=== PATIENT | male | born 1950 | race Caucasian/White ===

== ENCOUNTER → 2021-12-24 09:21 | Outpatient (CLI) | payer MEDICARE, OTHER, SELFPAY ==
[2021-12-24 11:08] LABS: Hemoglobin A1C% w Est Avg Glu 5.6 % (4.0-6.0)
[2021-12-24 11:10] LABS: Add Manual Diff / Slide Review NO; Basophils Absolute Auto 100 /uL (0-100); Basophils Percent Auto 0.6 % (0-2); Eosinophils Absolute Auto 400 /uL (0-450); Eosinophils Percent Auto 3.8 % (2-4); Hematocrit 41.6 % (41-53); Hemoglobin 14.4 g/dL (13.5-17.5); Lymphocytes Absolute Auto 2500 /uL (1100-4500); Lymphocytes Percent Auto 25.5 % (25-40); Mean Corpuscular HGB Conc 34.6 % (30-36); Mean Corpuscular Hemoglobin 29.3 PG (26-34); Mean Corpuscular Volume 84.5 fL (80-100); Monocytes Absolute Auto 800 /uL (0-900); Monocytes Percent Auto 8.5 % (3-14); Neutrophils Absolute Auto 6000 /uL (1500-7000); Neutrophils Percent Auto 61.6 % (50-75); Platelet Count 238 X10^3/uL (150-400); Red Blood Cell Count 4.93 X10^6/uL (4.5-5.9); Red Cell Distribution Width 13.3 % (11.6-14.8); White Blood Cell Count 9.8 X10^3/uL (4.5-11.0)
[2021-12-24 11:57] LABS: Alanine Aminotransferase 35 IU/L (<50); Albumin 4.3 g/dL (3.5-5.0); Albumin Globulin Ratio 1.5 (1.0-2.8); Alkaline Phosphatase 56 U/L (38-126); Aspartate Aminotransferase 30 IU/L (17-59); BUN Creatinine Ratio 18.8 (6-22); Bilirubin Total 0.6 mg/dL (0.2-1.3); Blood Urea Nitrogen 18 mg/dL (9-20); Calcium 9.3 mg/dL (8.4-10.2); Carbon Dioxide 28 mmol/L (22-32); Chloride 100 mmol/L (98-107); Cholesterol 164 mg/dL (140-199); Estimated Glomerular Filt Rate > 60 mL/min (>60); Globulin 2.8 g/dL (1.7-4.1); Glucose 95 mg/dL (80-110); HDL Cholesterol 55 mg/dL (40-60); HEMOLYSIS < 15 (0-50); LDL Cholesterol Calculated 83 mg/dL (<100); Potassium 4.1 mmol/L (3.4-5.1); Sodium 137 mmol/L (137-145); Total Protein 7.1 g/dL (6.3-8.2); Triglycerides 128 mg/dL (35-150)
== END ==
PROVIDERS: PCP Family Medicine; Referring Provider Family Medicine; Visit Provider Family Medicine
DX: E78.5 Hyperlipidemia, unspecified (principal); I10 Essential (primary) hypertension; I48.19 Other persistent atrial fibrillation
CPT/HCPCS: 36415; 80053; 80061; 83036; 85025

== ENCOUNTER 2022-12-21 03:24 | Emergency (ER) | payer MEDICARE, SELFPAY ==
[2022-12-21] VITALS (10 sets, daily range): BP systolic 111–127; BP diastolic 59–71; PULSE 78–122; RESP 10–30; TEMP 36.6; O2SAT 97–100; BMI 29.8
--- NOTE | 2022-12-21 03:41 | ED.GENADULT ---
HPI - General Adult General Chief complaint: Syncope Stated complaint: syncope- hit head on wall- eliquis Time Seen by Provider: 12/21/22 03:41 History of Present Illness HPI narrative: 72-year-old male nonsmoker with history of AFib on Eliquis presents by EMS for evaluation of a syncopal episode this morning. He states that he had a busy day yesterday but had a relatively normal amount of food and drink. He got new exercise equipment in chose to use at all. He took his medications as directed and went to bed in his normal state of health. He woke up this morning to use the bathroom which is about 10 ft away from his bed. By the time he got to the toilet he started feeling a bit lightheaded which he states is not necessarily abnormal for him in the morning. He started to urinate and felt increasingly lightheaded at which point he decided to sit down and then his heard a crash and he had fallen forward off the toilet and struck his head on the wall. He quickly woke up and EMS was activated. He does have a small abrasion on his forehead and is activated as a modified trauma given his fall with head injury on anticoagulants. He is otherwise well and back to his baseline. He is not dizzy, weak or lightheaded. He denies any fever or chills and has no chest pain or shortness of breath. He is not been recently ill and denies nausea, vomiting or diarrhea. Related Data Home Medications Medication Instructions Recorded Confirmed apixaban 5 mg tablet (Eliquis) 5 mg PO BID 12/24/21 02/07/22 Previous Rx's Medication Instructions Recorded zolpidem 5 mg tablet (Ambien) 5 mg PO BEDTIME PRN insomnia #30 02/07/22 tabs sildenafil 100 mg tablet (Viagra) 50 - 100 mg (0.5 - 1 x 100 mg) PO 04/12/22 DAILY PRN sexual activity #30 tabs hydrochlorothiazide 25 mg tablet 25 mg PO DAILY for blood pressure 05/02/22 #90 tabs metoprolol succinate 25 mg 25 mg PO DAILY blood pressure #90 05/02/22 tablet,extended release 24 hr tabs atorvastatin 40 mg tablet See Rx Instructions .Route 06/13/22 .COMPLEX #90 tabs fluticasone propionate 100 1 inh inhalation BID #60 ea 09/06/22 mcg/actuation blister powder for inhalation Allergies Allergy/AdvReac Type Severity Reaction Status Date / Time cat celia AdvReac Intermediate Verified 02/07/22 10:09 Review of Systems Review of Systems Narrative: GENERAL: Denies chills, fatigue, malaise, fever, sweats. HEENT: Denies sinus pain, ear pain, sore throat, difficulty swallowing, dizziness. RESPIRATORY: Denies dyspnea, cough, wheezing, hemoptysis, sputum. CARDIOVASCULAR: See HPI GASTROINTESTINAL: Denies nausea, vomiting, abdominal pain, diarrhea, constipation, melena. : Denies dysuria, frequency, incontinence, hematuria, urinary retention. MUSCULOSKELETAL: denies weakness, joint pain, or bony pain SKIN: Denies rash, skin lesions, or other NEUROLOGIC: Denies weakness, headache, numbness, change in speech, confusion, seizures, incoordination. PSYCHIATRIC: No concerning psychosocial issues. 12 point review of systems is negative except for those stated above Patient History Medical History Erectile dysfunction Insomnia Encounter for annual wellness visit (AWV) in Medicare patient Plantar warts Asthma (~2019) Allergies Mumps Measles Chicken pox Hyperlipidemia Persistent atrial fibrillation (~2001) Benign essential HTN Surgical History Anesthesia History of nasal surgery Family History Father Congestive heart failure Mother Cancer Congestive heart failure Social History Smoking Status: Never smoker Smoking Status: Never smoker Exam Narrative Exam Narrative: GENERAL: [72] year old patient appears stated age. Well-developed patient, in mild distress. HEAD: Minor superficial abrasion to left side of forehead, no large hematoma or evidence of depressed skull fracture EYES: Pupils equal round and reactive. Extraocular motions intact. No scleral icterus. No injection or drainage. ENT: Nose without bleeding, purulent drainage. Throat without erythema, tonsillar hypertrophy or exudate. Airway patent. NECK: Trachea midline. Non tender CARDIOVASCULAR: Regular rate and rhythm without murmurs, gallops, or rubs. RESPIRATORY: Clear to auscultation. Breath sounds equal bilaterally. No wheezes, rales, or rhonchi. GASTROINTESTINAL: Abdomen soft, non-tender, nondistended. EXTREMITIES: No edema or joint tenderness. BACK: Nontender without deformity or crepitance. No flank tenderness. NEURO: AOx3. SKIN: No rash or erythema of visible areas Initial Vital Signs Initial Vital Signs: Vital Signs Temperature 97.8 F 12/21/22 03:36 Pulse Rate 78 12/21/22 03:36 Respiratory Rate 16 12/21/22 03:36 Blood Pressure 127/71 12/21/22 03:36 Pulse Oximetry 97 12/21/22 03:36 Oxygen Delivery Method Room Air 12/21/22 03:36 Course Orders Ordered: ED Orders 12/21/22 03:29 Complete Blood Count AUTO DIFF Stat Comprehensive Metabolic Panel Stat Magnesium Stat Troponin & CK Cardiac Panel Stat 12/21/22 03:43 CT head/brain wo con Stat 12/21/22 03:44 CT cervical spine wo con Stat 12/21/22 03:47 EKG-12 Lead Stat Discontinued Medications Sodium Chloride (Normal Saline 0.9%) 500 mls @ 1,000 mls/hr IV BOLUS ONE Stop: 12/21/22 04:58 Last Admin: 12/21/22 04:38 Dose: 1,000 mls/hr Documented By: CAROLYN Vital Signs Vital signs: Vital Signs - 8 hr 12/21/22 03:36 12/21/22 05:17 Temperature 97.8 F Pulse Rate 78 Pulse Rate [Orthostatic Lying] 79 Pulse Rate [Orthostatic Sitting] 97 H Pulse Rate [Orthostatic Standing] 122 H Respiratory Rate 16 Blood Pressure 127/71 Blood Pressure [Orthostatic Lying] 127/71 Blood Pressure [Orthostatic Sitting] 118/59 L Blood Pressure [Orthostatic Standing] 122/68 Pulse Oximetry 97 Oxygen Delivery Method Room Air Medical Decision Making Lab Data 12/21/22 03:29 12/21/22 03:29 Labs: Lab Results 12/21/22 Range/Units 03:29 WBC 12.6 H (4.5-11.0) X10^3/uL RBC 5.17 (4.5-5.9) X10^6/uL Hgb 14.8 (13.5-17.5) g/dL Hct 43.5 (41-53) % MCV 84.2 (80-100) fL MCH 28.6 (26-34) PG MCHC 33.9 (30-36) % RDW 13.3 (11.6-14.8) % Plt Count 238 (150-400) X10^3/uL Neut % (Auto) 45.0 L (50-75) % Lymph % (Auto) 39.9 (25-40) % Kimble % (Auto) 10.3 (3-14) % Eos % (Auto) 4.2 H (2-4) % Baso % (Auto) 0.6 (0-2) % Neut # (Auto) 5700 (7189-6804) /uL Lymph # (Auto) 5000 H (2489-5537) /uL Kimble # (Auto) 1300 H (0-900) /uL Eos # (Auto) 500 H (0-450) /uL Baso # (Auto) 100 (0-100) /uL Sodium 138 (137-145) mmol/L Potassium 3.6 (3.4-5.1) mmol/L Chloride 103 (98-107) mmol/L Carbon Dioxide 26 (22-32) mmol/L BUN 22 H (9-20) mg/dL Creatinine 1.05 (0.66-1.25) mg/dL Estimated GFR > 60 (>60) mL/min BUN/Creatinine Ratio 21.0 (6-22) Glucose 113 H (80-110) mg/dL Calcium 9.1 (8.4-10.2) mg/dL Magnesium 2.0 (1.6-2.3) mg/dL Total Bilirubin 0.8 (0.2-1.3) mg/dL AST 35 (17-59) IU/L ALT 37 (<50) IU/L Alkaline Phosphatase 43 (38-126) U/L Total Creatine Kinase 171 H (55-170) U/L Troponin I < 0.012 (0.01-0.034) ng/mL Total Protein 7.3 (6.3-8.2) g/dL Albumin 4.1 (3.5-5.0) g/dL Globulin 3.2 (1.7-4.1) g/dL Albumin/Globulin Ratio 1.3 (1.0-2.8) MDM Narrative Medical decision making narrative: [72] year old patient presents with syncope and head injury on Eliquis Multiple etiologies for patient's symptoms considered including, but not limited to: [Positional versus vasovagal versus cardiogenic versus arrhythmia versus intracranial hemorrhage versus other] Prior Charts reviewed in our EMR Primary Historian: patient Labs reviewed and interpreted by myself: Slight leukocytosis of unclear etiology, no signs of anemia, primary electrolytes and renal function within normal, glucose 113 Imaging reviewed: CT of the head demonstrates no acute intracranial findings, CT of C-spine without acute findings Patient's history and physical exam are reassuring. Multiple diagnoses considered as noted above. It seems most likely a relative perfect storm, combining a busier than normal day yesterday with change in position after a night's rest and even an element of micturition syncope. Patient awake and alert for duration of visit without complaint, labs reassuring, EKG without any noted arrhythmia, CT of head and C-spine without acute findings Patient's symptoms improved over duration of stay with above-stated therapies. Findings and discharge diagnosis discussed with patient/family followed by verbalization of understanding Return precautions discussed with patient/family whom verbalize understanding of diagnosis and plan Discharge Plan Departure Patient Disposition: Home Clinical Impression: Contusion of forehead, Syncope and collapse Instructions: DI for Syncope in Adults (Fainting) Activity Restrictions/Additional Instructions: *You have been diagnosed with [syncope and forehead contusion. As we discussed your history and physical exam are reassuring. Your labs showed no sign of anemia, electrolyte disturbance or kidney problem. The images of your head and neck showed no evidence of bleeding or fracture.] *What to do: *Please continue to take your regular medications as directed. [ ] New medication prescriptions sent to your pharmacy: [ ] [ ] New medication written as a paper prescription [ ] No new medications given *Please follow up with your primary care provider in 2-3 days, call for an appointment. Let them know you were seen in the Emergency Department and that we ask that you be seen in follow up. We will electronically transmit a record of today's note if your PCP is in our system *If you do not have a primary care provider please contact the [facility] Resource line at [phone]. They will ask some questions about your medical history and help get you set up with a doctor in the community. *Return to Emergency Department if you should have any new, worsening or concerning symptoms, such as [fever greater than 101 F, shaking chills, worsening pain, persistent vomiting or other bothersome symptoms] Prescriptions: No Action sildenafil [Viagra] 100 mg tablet 50 - 100 mg PO DAILY PRN (Reason: sexual activity) Qty: 30 11RF Rx Instructions: take 30 minutes to 4 hours before activity hydrochlorothiazide 25 mg tablet 25 mg PO DAILY Qty: 90 3RF metoprolol succinate 25 mg tablet extended release 24 hr 25 mg PO DAILY Qty: 90 3RF atorvastatin 40 mg tablet See Rx Instructions .ROUTE .COMPLEX Qty: 90 3RF Dose Instruction: take 1 tablet by mouth once daily Rx Instructions: take 1 tablet by mouth once daily fluticasone propionate 100 mcg/actuation blister with device 1 inh inhalation BID Qty: 60 11RF Eliquis 5 mg tablet 5 mg PO BID zolpidem [Ambien] 5 mg tablet 5 mg PO BEDTIME PRN (Reason: insomnia) Qty: 30 5RF Referrals: Damian Coello DO [Primary Care Provider] - Stand Alone Forms: Patient Portal/API
--- NOTE | 2022-12-21 03:43 | DI.CT.S_ITS ---
PROCEDURE: CT HEAD/BRAIN WO CON INDICATIONS: head injury on eliquis TECHNIQUE: Noncontrast 4.5 mm thick angled axial sections acquired from the foramen magnum to the vertex, with coronal and sagittal reformats. For radiation dose reduction, the following was used: automated exposure control, adjustment of mA and/or kV according to patient size. COMPARISON: None. FINDINGS: Image quality: Excellent. CSF spaces: Basal cisterns are patent. No extra-axial fluid collections. The ventricles are symmetric in size and shape. Brain: No intracranial bleeds or masses. There is cerebral volume loss for age, with resultant ventricular and sulcal prominence. There are periventricular and deep white matter chronic small vessel ischemic changes. There is intracranial internal carotid artery atherosclerosis. Skull and face: Calvarium and visualized facial bones appear intact, without suspicious lesions. Sinuses: Visualized sinuses and mastoids are clear. IMPRESSION: 1. No acute intracranial abnormalities. 2. Cerebral volume loss and chronic microvascular ischemic changes. No significant discrepancy with the night shift manager radiology preliminary report. Dictated by: Narciso Marrero M.D. on 12/21/2022 at 6:58 Approved by: Narciso Marrero M.D. on 12/21/2022 at 6:59
--- NOTE | 2022-12-21 03:44 | DI.CT.S_ITS ---
PROCEDURE: CT CERVICAL SPINE WO CON INDICATIONS: head injury TECHNIQUE: Noncontrast 3 mm thick sections acquired from the skull base to the T4 level. Sagittal and coronal reformats were then constructed. For radiation dose reduction, the following was used: automated exposure control, adjustment of mA and/or kV according to patient size. COMPARISON: None. FINDINGS: Image quality: Excellent. Bones: No fractures or dislocations. Mild degenerative disc disease and moderate facet arthropathy in cervical spine are noted. Visualized superior ribs are intact. Soft tissues: Prevertebral soft tissues are normal in thickness. No paravertebral hematomas. No apical pneumothoraces. IMPRESSION: No cervical spine fractures. No significant discrepancy with the second shift supervisor radiology preliminary report. Dictated by: Narciso Marrero M.D. on 12/21/2022 at 6:59 Approved by: Narciso Marrero M.D. on 12/21/2022 at 7:00
[2022-12-21 04:05] LABS: Add Manual Diff / Slide Review NO; Basophils Absolute Auto 100 /uL (0-100); Basophils Percent Auto 0.6 % (0-2); Eosinophils Absolute Auto 500 /uL (0-450); Eosinophils Percent Auto 4.2 % (2-4); Hematocrit 43.5 % (41-53); Hemoglobin 14.8 g/dL (13.5-17.5); Lymphocytes Absolute Auto 5000 /uL (1100-4500); Lymphocytes Percent Auto 39.9 % (25-40); Mean Corpuscular HGB Conc 33.9 % (30-36); Mean Corpuscular Hemoglobin 28.6 PG (26-34); Mean Corpuscular Volume 84.2 fL (80-100); Monocytes Absolute Auto 1300 /uL (0-900); Monocytes Percent Auto 10.3 % (3-14); Neutrophils Absolute Auto 5700 /uL (1500-7000); Platelet Count 238 X10^3/uL (150-400); Red Blood Cell Count 5.17 X10^6/uL (4.5-5.9); Red Cell Distribution Width 13.3 % (11.6-14.8); White Blood Cell Count 12.6 X10^3/uL (4.5-11.0)
[2022-12-21 04:13] LABS: Alanine Aminotransferase 37 IU/L (<50); Albumin 4.1 g/dL (3.5-5.0); Albumin Globulin Ratio 1.3 (1.0-2.8); Alkaline Phosphatase 43 U/L (38-126); Aspartate Aminotransferase 35 IU/L (17-59); Bilirubin Total 0.8 mg/dL (0.2-1.3); Blood Urea Nitrogen 22 mg/dL (9-20); Calcium 9.1 mg/dL (8.4-10.2); Carbon Dioxide 26 mmol/L (22-32); Chloride 103 mmol/L (98-107); Creatine Kinase 171 U/L (55-170); Estimated Glomerular Filt Rate > 60 mL/min (>60); Globulin 3.2 g/dL (1.7-4.1); Glucose 113 mg/dL (80-110); HEMOLYSIS 20 (0-50); Potassium 3.6 mmol/L (3.4-5.1); Sodium 138 mmol/L (137-145); Total Protein 7.3 g/dL (6.3-8.2)
[2022-12-21 04:24] LABS: Troponin I < 0.012 ng/mL (0.01-0.034)
[2022-12-21] MEDS: SODIUM CHLORIDE 0.9% 500 ML 1000 ML IV (04:38)
== END 2022-12-21 05:36 | disposition home or self-care (01) ==
PROVIDERS: Emergency Provider Emergency Medicine; PCP Family Medicine
DX: S00.83XA Contusion of other part of head, initial encounter (principal); R55 Syncope and collapse; R07.9 Chest pain, unspecified; S09.90XA Unspecified injury of head, initial encounter; Z79.01 Long term (current) use of anticoagulants; Z79.899 Other long term (current) drug therapy
CPT/HCPCS: 70450; 72125; 80053; 82550; 83735; 84484; 85025; 93005; 93010; 96360; 99283; 99284

== ENCOUNTER → 2023-02-13 13:31 | Outpatient (CLI) | payer MEDICARE, SELFPAY ==
[2023-02-13 15:02] LABS: Cholesterol 136 mg/dL (140-199); HDL Cholesterol 53 mg/dL (40-60); LDL Cholesterol Calculated 50 mg/dL (<100); Triglycerides 163 mg/dL (35-150)
[2023-02-13 15:05] LABS: Hemoglobin A1C% w Est Avg Glu 5.7 % (4.0-6.0)
[2023-02-16 04:08] LABS: Lipoprotein (a) <8.4 nmol/L (<75.0)
== END ==
PROVIDERS: PCP Family Medicine; Referring Provider Family Medicine; Visit Provider Family Medicine
DX: Z00.00 Encounter for general adult medical examination without abnormal findings (principal); R73.01 Impaired fasting glucose; E78.49 Other hyperlipidemia; I10 Essential (primary) hypertension; I48.19 Other persistent atrial fibrillation; E78.5 Hyperlipidemia, unspecified; M25.511 Pain in right shoulder
CPT/HCPCS: 36415; 80061; 83036; 83695

== ENCOUNTER 2023-05-09 09:00 | Outpatient (RCR) | payer MEDICARE, SELFPAY ==
--- NOTE | 2023-03-14 14:00 | PT.OIE ---
Current Diagnoses Other chronic pain (03/14/23) Pain in right shoulder (03/14/23) Past Medical History (Last Reviewed 12/21/22 @ 04:38 by Ajit Zimmerman DO) Allergies Asthma (~2019) Benign essential HTN Chicken pox Encounter for annual wellness visit (AWV) in Medicare patient Erectile dysfunction Hyperlipidemia Insomnia Measles Mumps Persistent atrial fibrillation (~2001) Plantar warts Past Surgical History (Last Reviewed 12/21/22 @ 04:38 by Ajit Zimmerman DO) Anesthesia History of nasal surgery Visit Care Team Role Provider Type Damian Coello DO Attending Provider Physician Family Provider Primary Care Provider Referring Provider Specialty: [facility] Practice Address: [address] [place] [address], [address], [facility] Email: [email or web address] Physical Therapy Initial Evaluation PT-OP-A Visit Information Start: 03/13/23 13:19 Freq: Status: Active Protocol: Document 03/14/23 11:15 MB (Rec: 03/14/23 11:30 MB [id number]) Out-Patient Physical Therapy Visit Information Visit Information Visit Type Initial Evaluation Visit Note Managed Medicare Visit Start Time 11:15 Visit Stop Time 12:00 Total Visit Minutes 45 Visit Number 1 Number of 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 Pt states that every other day, he does a modified push- ups on his knees and he demonstrates on his forearms and lifting pelvis. He does recumbent bike, elliptical and pre-core weight machine with leg exercises, pull down, fly and shoulder extension. The shoulder is hurting with all of his lifting exercises. Pt states that Dr. Coello states he might have had a mild rotator cuff tear. Pt is retired. He does not have any other trouble with ADLs. He reports ongoing proximal arm discomfort with shoulder raising. Pt was previously having some paresthesias in right hand and that has resolved. He is sleeping better and is getting a CPAP. Treatment Goals Patient/Caregiver Goals To decrease pain and improve last 5% of mobility PT-OP-C Subjective Start: 03/13/23 13:19 Freq: Status: Active Protocol: Document 03/14/23 11:15 MB (Rec: 03/14/23 11:30 MB [id number]) OP-PT Subjective Patient Comments Patient Comments See comments above Patient Questionnaires Quick Dash- Upper Extremity Quick Dash UE Score 16 Quick Dash UE Impairment 1 to 19% Impaired (Score 1-19) PT-OP-J Posture/Palpation/Skin Start: 03/13/23 13:19 Freq: Status: Active Protocol: Document 03/14/23 11:15 MB (Rec: 03/14/23 11:30 MB [id number]) Posture Evaluation Comments Posture Comments Standing posture: left shoulder is mildly higher than the right; left shoulder is more forward than the right and he has SC and AC changes and stiffness and reports old collar bone injury; forward head, right tragus is 1/2 forward of AC joint; pt with cupping harman on his back; increased convexity lower cervical spine and upp thoracic spine, flat thoracic spine, right scapula is higher than the left, right iliac crest is higher than the left. PT-OP-K Range of Motion Start: 03/13/23 13:19 Freq: Status: Active Protocol: Document 03/14/23 11:15 MB (Rec: 03/14/23 11:43 MB [id number]) Cervical Spine Range of Motion Cervical Spine Active Testing Position Standing Flexion 40 Extension 20 Rotation Left 40 Rotation Right 25 Lateral Flexion Left 10 Lateral Flexion Right 5 Comments Cervical tightness and rotatory component to SB Shoulder Goniometric Range of Motion Shoulder Left Shoulder ROM WFL Yes Testing Position Standing Flexion 150 Abduction 160 Internal Rotation Behind Back (text) To L1 Comments In supine, increased muscle tightness end-range for passive ER in 90/90 and IR is normal Right Shoulder ROM WFL No Testing Position Standing Flexion 135 Abduction 130 Internal Rotation Behind Back (text) To T10 Comments In supine, passive ER 5 deg and IR 5 deg with tension end- feel in 90/90 PT-OP-M Strength Start: 03/13/23 13:19 Freq: Status: Active Protocol: Document 03/14/23 11:15 MB (Rec: 03/14/23 11:43 MB [id number]) Shoulder Strength Shoulder Manual Muscle Testing Left Flexion 5 Normal Abduction (C5) 5 Normal External Rotation 4 Good Right External Rotation 4 Good Comments Deferred flexion and abduction testing Elbow/Forearm Strength Elbow and Forearm Manual Muscle Testing Left Flexion (C6) 5 Normal Extension (C7) 5 Normal Right Flexion (C6) 5 Normal Extension (C7) 5 Normal PT-OP-Q Treatments Start: 03/13/23 13:19 Freq: Status: Active Protocol: Document 03/14/23 11:15 MB (Rec: 03/14/23 11:54 MB [id number]) Therapeutic Exercises Supine Exercises Cane/golf club range Comments Left hand helping right, flexion and abduction, 10 reps and thumb up Self-Care/Home Management Treatment Education Patient Education Body Mechanics,Home Exercise Program,Pain Management, Posture Other Education PT ed pt on benefits of OPPT to improve his body mechanics, posture and shoulder exercise program, benefits of using ice, benefits of proper head and cervical support for sleeping PT-OP-T Assessment and Plan Start: 03/13/23 13:19 Freq: Status: Active Protocol: Document 03/14/23 11:15 MB (Rec: 03/14/23 14:00 MB [id number]) Physical Therapy Assessment Rehab Potential Rehabilitation Potential Good Evaluation Complexity Number of Personal Factors/Comorbidities 1-2 Number of Body Systems Impaired 1-2 Clinical Presentation at Evaluation Evolving Impairments Impairments Activity Tolerance,Functional Activities,Functional Mobility ,Pain,Posture,ROM,Soft Tissue Mobility,Strength Goals 3 Basket Operator Goal (LTG) Pt will perform progressive HEP including postural, range, strengthening, and self- myofascial exercises to improve range, function, pain and strength. LTG Duration 10 weeks 2 Impairment Decreased right shoulder ROM and painful range Care Home Goal (LTG) Pt will present with improved right shoulder flexion and abduction ROM equal to the left in pain-free range to improve functional use of arm and quality of life. LTG Duration 10 weeks 1 Impairment QuickDASH score reflects a little less than 12% impairment Care Home Goal (LTG) Pt will present with QuickDASH score to reflect no more thn 5% impairment to improve function and pain. LTG Duration 10 weeks Assessment Summary Assessment Pt is a 72 y/o male presenting with right shoulder pain with AROM that started in December of 2022. He denies any event causing injury that he can think of. Pt does do an exercise program including push-ups and UE exercises on a machine. Pt presents with limited active right shoulder flexion and abduction in standing and reports pain, especially when lowering arm and pain is in the deltoid/ biceps referral area of the arm. Active IR is also reduced and painful and passive ER and IR in supine with shoulder in 90/90 is tight and painful . Pt reports previous paresthesias in right hand have resolved and he does report an improvement over the past two months with exercises including supine ER with hands behind his head. He and doctor are concerned about possible rotator cuff injury or mild tear and that does seem to be the presentation per PT's functional assessment today. He will benefit from PT to improve posture (pt has many postural changes and cervical limitations as well), range, and strength. Can recommend further diagnostics or work-up if PT is not successful. PT functional prognosis with PT is good. Physical Therapy Plan Frequency and Duration Frequency of Treatment 1-2x/wk Duration of treatment (weeks) 10 Plan of Care Start Date 03/14/23 Plan of Care End Date 04/27/23 Therapeutic Interventions Therapeutic Interventions Balance Training,Canalithic Repositioning,Home Exercise Program,Joint Mobilizations, Manual Therapy,Neuromuscular Re-education,Patient/Caregiver Education,Self-Care/Home Management,Soft Tissue Mobilization,Taping, Therapeutic Activities, Therapeutic Exercises Modalities Cold Pack/Ice Massage,Electric Stimulation,Hot Packs, Ultrasound Other Therapeutic Interventions Cold laser If pt is still in therapy when PT intramuscular needling starts in 2023, intramuscular needling Next Visit Focus/Plan Next Note Type Treatment Note Next Visit Plan Racquet ball massage, pect stretch and supine ER stretch
--- NOTE | 2023-03-21 11:17 | PT.OTN ---
Current Diagnoses Other chronic pain (03/21/23) Pain in right shoulder (03/21/23) Physical Therapy Treatment Note PT-OP-A Visit Information Start: 03/13/23 13:19 Freq: Status: Active Protocol: Document 03/21/23 10:32 MB (Rec: 03/21/23 11:00 MB [id number]) Out-Patient Physical Therapy Visit Information Visit Information Visit Type Treatment Note Visit Note Medicare 04/08 Visit Start Time 10:32 Visit Stop Time 11:15 Total Visit Minutes 43 Visit Number 2 Number of EDUCATION MANAGER Visits 0 PT-OP-B Current Condition Start: 03/13/23 13:19 Freq: Status: Active Protocol: Document 03/21/23 10:32 MB (Rec: 03/21/23 11:00 MB [id number]) Current Condition Treatment Goals Patient/Caregiver Goals Pt wonders when PT would get to the point that there would be a diagnostic asked. PT-OP-C Subjective Start: 03/13/23 13:19 Freq: Status: Active Protocol: Document 03/14/23 11:15 MB (Rec: 03/14/23 11:30 MB [id number]) OP-PT Subjective Patient Comments Patient Comments See comments above Patient Questionnaires Quick Dash- Upper Extremity Quick Dash UE Score 16 Quick Dash UE Impairment 1 to 19% Impaired (Score 1-19) PT-OP-J Posture/Palpation/Skin Start: 03/13/23 13:19 Freq: Status: Active Protocol: Document 03/14/23 11:15 MB (Rec: 03/14/23 11:30 MB [id number]) Posture Evaluation Comments Posture Comments Standing posture: left shoulder is mildly higher than the right; left shoulder is more forward than the right and he has SC and AC changes and stiffness and reports old collar bone injury; forward head, right tragus is 1/2 forward of AC joint; pt with cupping harman on his back; increased convexity lower cervical spine and upp thoracic spine, flat thoracic spine, right scapula is higher than the left, right iliac crest is higher than the left. PT-OP-K Range of Motion Start: 03/13/23 13:19 Freq: Status: Active Protocol: Document 03/14/23 11:15 MB (Rec: 03/14/23 11:43 MB [id number]) Cervical Spine Range of Motion Cervical Spine Active Testing Position Standing Flexion 40 Extension 20 Rotation Left 40 Rotation Right 25 Lateral Flexion Left 10 Lateral Flexion Right 5 Comments Cervical tightness and rotatory component to SB Shoulder Goniometric Range of Motion Shoulder Left Shoulder ROM WFL Yes Testing Position Standing Flexion 150 Abduction 160 Internal Rotation Behind Back (text) To L1 Comments In supine, increased muscle tightness end-range for passive ER in 90/90 and IR is normal Right Shoulder ROM WFL No Testing Position Standing Flexion 135 Abduction 130 Internal Rotation Behind Back (text) To T10 Comments In supine, passive ER 5 deg and IR 5 deg with tension end- feel in 90/90 PT-OP-M Strength Start: 03/13/23 13:19 Freq: Status: Active Protocol: Document 03/14/23 11:15 MB (Rec: 03/14/23 11:43 MB [id number]) Shoulder Strength Shoulder Manual Muscle Testing Left Flexion 5 Normal Abduction (C5) 5 Normal External Rotation 4 Good Right External Rotation 4 Good Comments Deferred flexion and abduction testing Elbow/Forearm Strength Elbow and Forearm Manual Muscle Testing Left Flexion (C6) 5 Normal Extension (C7) 5 Normal Right Flexion (C6) 5 Normal Extension (C7) 5 Normal PT-OP-Q Treatments Start: 03/13/23 13:19 Freq: Status: Active Protocol: Document 03/21/23 10:32 MB (Rec: 03/21/23 11:00 MB [id number]) Therapeutic Exercises Standing Exercises Review HEP and arm swing Standing Exercise Name Scapular movement and arm swing with gait, review cane ex Comments Ed in benefits in pool noodle Manual Therapy Treatment Other Other Manual Treatments AROM in standing before [place] Protocol: right shoulder abduction: 125 deg, flexion 140 and twinge with lower arm. [place] Protocol mobs right shoulder including scapular mobs all directions, passive range rotation, SC and AC mobs . Increased tension with PA mobs with arm in IR and in ratchet position. Increased tension with passive right abduction in side lying, PA mobs in side lying also tight. After treatment, abduction to 158 deg and flexion to 150 deg. PT-OP-T Assessment and Plan Start: 03/13/23 13:19 Freq: Status: Active Protocol: Document 03/21/23 10:32 MB (Rec: 03/21/23 11:07 MB [id number]) Physical Therapy Assessment Rehab Potential Rehabilitation Potential Good Evaluation Complexity Number of Personal Factors/Comorbidities 1-2 Number of Body Systems Impaired 1-2 Clinical Presentation at Evaluation Evolving Impairments Impairments Activity Tolerance,Functional Activities,Functional Mobility ,Pain,Posture,ROM,Soft Tissue Mobility,Strength Goals 3 Treatment Supervisor Goal (LTG) Pt will perform progressive HEP including postural, range, strengthening, and self- myofascial exercises to improve range, function, pain and strength. LTG Duration 10 weeks 2 Impairment Decreased right shoulder ROM and painful range Treatment Supervisor Goal (LTG) Pt will present with improved right shoulder flexion and abduction ROM equal to the left in pain-free range to improve functional use of arm and quality of life. LTG Duration 10 weeks 1 Impairment QuickDASH score reflects a little less than 12% impairment Prison Goal (LTG) Pt will present with QuickDASH score to reflect no more thn 5% impairment to improve function and pain. LTG Duration 10 weeks Assessment Summary Assessment Pt with most tension passively with PA mobs in IR position and ratchet position, tension with passive abduction and windwill with [place] protocol today. AROM right shoulder abduction and flexion are both better after [place] protocol today with most improvement in abduction. Physical Therapy Plan Frequency and Duration Frequency of Treatment 1-2x/wk Duration of treatment (weeks) 10 Plan of Care Start Date 03/14/23 Plan of Care End Date 04/27/23 Therapeutic Interventions Therapeutic Interventions Balance Training,Canalithic Repositioning,Home Exercise Program,Joint Mobilizations, Manual Therapy,Neuromuscular Re-education,Patient/Caregiver Education,Self-Care/Home Management,Soft Tissue Mobilization,Taping, Therapeutic Activities, Therapeutic Exercises Modalities Cold Pack/Ice Massage,Electric Stimulation,Hot Packs, Ultrasound Other Therapeutic Interventions Cold laser If pt is still in therapy when PT intramuscular needling starts in 2023, intramuscular needling Next Visit Focus/Plan Next Note Type Treatment Note Next Visit Plan Racquet ball massage, pect stretch and supine ER stretch, con't manual work, [place] Protocol
--- NOTE | 2023-03-24 16:40 | PT.OTN ---
Current Diagnoses Other chronic pain (03/24/23) Pain in right shoulder (03/24/23) Physical Therapy Treatment Note PT-OP-A Visit Information Start: 03/13/23 13:19 Freq: Status: Active Protocol: Document 03/24/23 08:36 AB (Rec: 03/24/23 16:40 AB [id number]) Out-Patient Physical Therapy Visit Information Visit Information Visit Note Managed Medicare 05/06 Visit Start Time 14:27 Visit Stop Time 15:13 Visit Number 3 Number of MOTEL FRONT DESK CLERK Visits 1 PT-OP-B Current Condition Start: 03/13/23 13:19 Freq: Status: Active Protocol: Document 03/21/23 10:32 MB (Rec: 03/21/23 11:00 MB [id number]) Current Condition Treatment Goals Patient/Caregiver Goals Pt wonders when PT would get to the point that there would be a diagnostic asked. PT-OP-C Subjective Start: 03/13/23 13:19 Freq: Status: Active Protocol: Document 03/24/23 08:36 AB (Rec: 03/24/23 16:40 AB [id number]) OP-PT Subjective Patient Comments Patient Comments Patient reports he has been doing his stretches he did previous to therapy. Patient reports unable to sleep on side. Patient reports he started Pilates with a maintenance trainer who is aware of the shoulder injury and has had no increase in shoulder pain. PT-OP-J Posture/Palpation/Skin Start: 03/13/23 13:19 Freq: Status: Active Protocol: Document 03/14/23 11:15 MB (Rec: 03/14/23 11:30 MB [id number]) Posture Evaluation Comments Posture Comments Standing posture: left shoulder is mildly higher than the right; left shoulder is more forward than the right and he has SC and AC changes and stiffness and reports old collar bone injury; forward head, right tragus is 1/2 forward of AC joint; pt with cupping harman on his back; increased convexity lower cervical spine and upp thoracic spine, flat thoracic spine, right scapula is higher than the left, right iliac crest is higher than the left. PT-OP-K Range of Motion Start: 03/13/23 13:19 Freq: Status: Active Protocol: Document 03/14/23 11:15 MB (Rec: 03/14/23 11:43 MB [id number]) Cervical Spine Range of Motion Cervical Spine Active Testing Position Standing Flexion 40 Extension 20 Rotation Left 40 Rotation Right 25 Lateral Flexion Left 10 Lateral Flexion Right 5 Comments Cervical tightness and rotatory component to SB Shoulder Goniometric Range of Motion Shoulder Left Shoulder ROM WFL Yes Testing Position Standing Flexion 150 Abduction 160 Internal Rotation Behind Back (text) To L1 Comments In supine, increased muscle tightness end-range for passive ER in 90/90 and IR is normal Right Shoulder ROM WFL No Testing Position Standing Flexion 135 Abduction 130 Internal Rotation Behind Back (text) To T10 Comments In supine, passive ER 5 deg and IR 5 deg with tension end- feel in 90/90 PT-OP-M Strength Start: 03/13/23 13:19 Freq: Status: Active Protocol: Document 03/14/23 11:15 MB (Rec: 03/14/23 11:43 MB [id number]) Shoulder Strength Shoulder Manual Muscle Testing Left Flexion 5 Normal Abduction (C5) 5 Normal External Rotation 4 Good Right External Rotation 4 Good Comments Deferred flexion and abduction testing Elbow/Forearm Strength Elbow and Forearm Manual Muscle Testing Left Flexion (C6) 5 Normal Extension (C7) 5 Normal Right Flexion (C6) 5 Normal Extension (C7) 5 Normal PT-OP-Q Treatments Start: 03/13/23 13:19 Freq: Status: Active Protocol: Document 03/24/23 08:36 AB (Rec: 03/24/23 16:40 AB [id number]) Therapeutic Exercises Supine Exercises chest repairer maintenance building Supine Exercise Name chest repairer maintenance building/pec stretch Side bilateral Equipment Used foam roller Reps/Minutes 3 min Comments VC supine shoulder flexion Supine Exercise Name AROM with dowel Side bilateral Reps/Minutes 10 Comments VC for 10 sec hold Sidelying Exercises shoulder abduction Sidelying Exercise Name AROM Side right Reps/Minutes 10 PROM ER with dowel shoulder Sidelying Exercise Name right shoulder ER Side right Reps/Minutes 10 Comments Verbal and tactile cues sidelying ER AROM Side right Reps/Minutes 10 Comments VC and tactile cues Standing Exercises bent row Standing Exercise Name bent row Side right Resistance 0 Reps/Minutes 10 Comments VC and visual cues pec stretch Standing Exercise Name standing at door single arm Side bilateral Reps/Minutes one minute X 2 Manual Therapy Treatment Joint Mobilizations Gh mobilization Joint GH Direction AP, PA and INF Grade II Body Position Hooklying Reps/Duration 12 each Comments Monitored for pain scapular mobilization Joint right scapual Direction into adduction and depression Grade III Body Position Sidelying Comments Monitored for pain Manual Techniques PROM shoulder Type PROM shoulder ER Body Location shoulder Body Position Hooklying Reps/Duration 16 Comments Monitored for pain Self-Care/Home Management Treatment Education Other Education Self STM to right scapular muscles with racquet ball, and manually using left UE to pec PT-OP-T Assessment and Plan Start: 03/13/23 13:19 Freq: Status: Active Protocol: Document 03/24/23 08:36 AB (Rec: 03/24/23 16:40 AB [id number]) Physical Therapy Assessment Goals 3 Copper Plate Lithographer Goal (LTG) Pt will perform progressive HEP including postural, range, strengthening, and self- myofascial exercises to improve range, function, pain and strength. LTG Duration 10 weeks 2 Impairment Decreased right shoulder ROM and painful range Alf Goal (LTG) Pt will present with improved right shoulder flexion and abduction ROM equal to the left in pain-free range to improve functional use of arm and quality of life. 1 Impairment QuickDASH score reflects a little less than 12% impairment Alf Goal (LTG) Pt will present with QuickDASH score to reflect no more thn 5% impairment to improve function and pain. LTG Duration 10 weeks Assessment Summary Assessment AROM right shoulder flexion 133 deg start of session with reports of discomfort lowering the UE increased to 139 deg end of session. Physical Therapy Plan Frequency and Duration Frequency of Treatment 1-2x/wk Duration of treatment (weeks) 10 Plan of Care Start Date 03/14/23 Plan of Care End Date 04/27/23 Next Visit Focus/Plan Next Note Type Treatment Note Next Visit Plan Racquet ball massage, pect stretch and supine ER stretch, con't manual work, [place] Protocol
--- NOTE | 2023-03-28 09:34 | PT.OPPOC ---
Physical, Occupational & Speech Therapy At [facility] Current Diagnoses Other chronic pain (03/24/23) Pain in right shoulder (03/24/23) Visit Care Team Role Provider Type Damian Coello DO Attending Provider Physician Family Provider Primary Care Provider Referring Provider Specialty: Family Practice Address: [address] [place] [address], [address], [facility] Email: [email or web address] Plan Of Care PT-OP-T Assessment and Plan Start: 03/13/23 13:19 Freq: Status: Active Protocol: Document 03/28/23 09:30 MB (Rec: 03/28/23 09:34 MB [id number]) Physical Therapy Assessment Rehab Potential Rehabilitation Potential Good Evaluation Complexity Number of Personal Factors/Comorbidities 1-2 Number of Body Systems Impaired 1-2 Clinical Presentation at Evaluation Evolving Impairments Impairments Activity Tolerance,Functional Activities,Functional Mobility ,Pain,Posture,ROM,Soft Tissue Mobility,Strength Goals 3 Longterm Goal (LTG) Pt will perform progressive HEP including postural, range, strengthening, and self- myofascial exercises to improve range, function, pain and strength. LTG Duration 8 weeks 2 Impairment Decreased right shoulder ROM and painful range Etymology Teacher Goal (LTG) Pt will present with improved right shoulder flexion and abduction ROM equal to the left in pain-free range to improve functional use of arm and quality of life. LTG Duration 8 weeks 1 Impairment QuickDASH score reflects a little less than 12% impairment Longterm Goal (LTG) Pt will present with QuickDASH score to reflect no more thn 5% impairment to improve function and pain. LTG Duration 8 weeks Assessment Summary Assessment PT note to send POC to provider. Pt is tolerating PT well including manual work and therapeutic exercise and range improves with manual work. Pt may end up needing further diagnostics to check out rotator cuff and will con' t to monitor progress in pain, range and strength. POC date start below is eval date. Physical Therapy Plan Frequency and Duration Frequency of Treatment 1-2x/wk Duration of treatment (weeks) 10 Plan of Care Start Date 03/14/23 Plan of Care End Date 05/29/23 Therapeutic Interventions Therapeutic Interventions Balance Training,Canalithic Repositioning,Home Exercise Program,Joint Mobilizations, Manual Therapy,Neuromuscular Re-education,Patient/Caregiver Education,Self-Care/Home Management,Soft Tissue Mobilization,Taping, Therapeutic Activities, Therapeutic Exercises Modalities Cold Pack/Ice Massage,Electric Stimulation,Hot Packs, Ultrasound Other Therapeutic Interventions Cold laser Next Visit Focus/Plan Next Note Type Treatment Note Next Visit Plan Con't manual work, [place] Protocol, arm bike, progressive active range and strengthening over pool noodle , consider wall crawls and further thoracic mobility over pool noodle, roller and with activites like Child's pose if pt can tolerate, rib and thoracic mobility Plan of Care Dates Plan of Care Start Date 03/14/23 Plan of Care End Date 05/29/23 Electronically Signed by: Tabatha Taylor PT 03/28/23 0934 If you are in agreement with this Plan of Care, please return a signed and dated copy. I have reviewed this Plan of Care and certify that the skilled therapy services above are required to meet the patient?s needs. Physician Signature Date Printed Name and Credentials Clinical Instructor Signature Printed Name and Credentials
--- NOTE | 2023-03-28 12:03 | PT.OTN ---
Current Diagnoses Other chronic pain (03/28/23) Pain in right shoulder (03/28/23) Physical Therapy Treatment Note PT-OP-A Visit Information Start: 03/13/23 13:19 Freq: Status: Active Protocol: Document 03/28/23 11:15 MB (Rec: 03/28/23 12:02 MB [id number]) Out-Patient Physical Therapy Visit Information Visit Information Visit Note Managed Medicare 06/06 Visit Start Time 11:15 Visit Stop Time 11:55 Visit Number 40 Number of GETTER FILLER Visits 0 PT-OP-B Current Condition Start: 03/13/23 13:19 Freq: Status: Active Protocol: Document 03/21/23 10:32 MB (Rec: 03/21/23 11:00 MB [id number]) Current Condition Treatment Goals Patient/Caregiver Goals Pt wonders when PT would get to the point that there would be a diagnostic asked. PT-OP-C Subjective Start: 03/13/23 13:19 Freq: Status: Active Protocol: Document 03/28/23 11:15 MB (Rec: 03/28/23 12:02 MB [id number]) OP-PT Subjective Patient Comments Patient Comments Pt states that he is going to get his PNA shot at 12:20. Pt does state that he feels better with PT. PT-OP-J Posture/Palpation/Skin Start: 03/13/23 13:19 Freq: Status: Active Protocol: Document 03/14/23 11:15 MB (Rec: 03/14/23 11:30 MB [id number]) Posture Evaluation Comments Posture Comments Standing posture: left shoulder is mildly higher than the right; left shoulder is more forward than the right and he has SC and AC changes and stiffness and reports old collar bone injury; forward head, right tragus is 1/2 forward of AC joint; pt with cupping harman on his back; increased convexity lower cervical spine and upp thoracic spine, flat thoracic spine, right scapula is higher than the left, right iliac crest is higher than the left. PT-OP-K Range of Motion Start: 03/13/23 13:19 Freq: Status: Active Protocol: Document 03/14/23 11:15 MB (Rec: 03/14/23 11:43 MB [id number]) Cervical Spine Range of Motion Cervical Spine Active Testing Position Standing Flexion 40 Extension 20 Rotation Left 40 Rotation Right 25 Lateral Flexion Left 10 Lateral Flexion Right 5 Comments Cervical tightness and rotatory component to SB Shoulder Goniometric Range of Motion Shoulder Left Shoulder ROM WFL Yes Testing Position Standing Flexion 150 Abduction 160 Internal Rotation Behind Back (text) To L1 Comments In supine, increased muscle tightness end-range for passive ER in and IR is normal Right Shoulder ROM WFL No Testing Position Standing Flexion 135 Abduction 130 Internal Rotation Behind Back (text) To T10 Comments In supine, passive ER 5 deg and IR 5 deg with tension end- feel in PT-OP-M Strength Start: 03/13/23 13:19 Freq: Status: Active Protocol: Document 03/14/23 11:15 MB (Rec: 03/14/23 11:43 MB [id number]) Shoulder Strength Shoulder Manual Muscle Testing Left Flexion 5 Normal Abduction (C5) 5 Normal External Rotation 4 Good Right External Rotation 4 Good Comments Deferred flexion and abduction testing Elbow/Forearm Strength Elbow and Forearm Manual Muscle Testing Left Flexion (C6) 5 Normal Extension (C7) 5 Normal Right Flexion (C6) 5 Normal Extension (C7) 5 Normal PT-OP-Q Treatments Start: 03/13/23 13:19 Freq: Status: Active Protocol: Document 03/28/23 11:15 MB (Rec: 03/28/23 12:02 MB [id number]) Cardio Equipment Upper Body Ergometer (UBE) Duration (Minutes) 6 Other 1' forward and 1' backward reps Therapeutic Exercises Standing Exercises Review HEP and arm swing Comments Performed this today as well Therapeutic Activity Therapeutic Activity Postural awareness, scapular and thoracic mobility with gait, standing Comments Hips forward and moving from shoulder and thorax to improve flexibility of upper back and shoulders, cues for staying loose and keeping range once obtained by Pooler protocol Manual Therapy Treatment Other Other Manual Treatments [place] Protocol right shoulder: right scapular and GH mobs in many directions with pt in prone and side lying. Rib recoil and thoracic PA mobs in prone, AP ER mobs and PA ER and IR mobs PT-OP-T Assessment and Plan Start: 03/13/23 13:19 Freq: Status: Active Protocol: Document 03/28/23 11:15 MB (Rec: 03/28/23 12:02 MB [id number]) Physical Therapy Assessment Rehab Potential Rehabilitation Potential Good Evaluation Complexity Number of Personal Factors/Comorbidities 1-2 Number of Body Systems Impaired 1-2 Clinical Presentation at Evaluation Evolving Impairments Impairments Activity Tolerance,Functional Activities,Functional Mobility ,Pain,Posture,ROM,Soft Tissue Mobility,Strength Goals 3 Care Home Goal (LTG) Pt will perform progressive HEP including postural, range, strengthening, and self- myofascial exercises to improve range, function, pain and strength. LTG Duration 8 weeks 2 Impairment Decreased right shoulder ROM and painful range Care Home Goal (LTG) Pt will present with improved right shoulder flexion and abduction ROM equal to the left in pain-free range to improve functional use of arm and quality of life. LTG Duration 8 weeks 1 Impairment QuickDASH score reflects a little less than 12% impairment Care Home Goal (LTG) Pt will present with QuickDASH score to reflect no more thn 5% impairment to improve function and pain. LTG Duration 8 weeks Assessment Summary Assessment Right shoulder AROM in standing before treatment: flexion 138 deg, abduction 138 deg and catch with lowering arm from flexion. Flexion and abduction are both to 160 deg after treatment, which is more range than obtained last Pooler Protocol. Pt has thoracic and scapular tension and these affect his shoulder. Physical Therapy Plan Frequency and Duration Frequency of Treatment 1-2x/wk Duration of treatment (weeks) 10 Plan of Care Start Date 03/14/23 Plan of Care End Date 05/29/23 Therapeutic Interventions Therapeutic Interventions Balance Training,Canalithic Repositioning,Home Exercise Program,Joint Mobilizations, Manual Therapy,Neuromuscular Re-education,Patient/Caregiver Education,Self-Care/Home Management,Soft Tissue Mobilization,Taping, Therapeutic Activities, Therapeutic Exercises Modalities Cold Pack/Ice Massage,Electric Stimulation,Hot Packs, Ultrasound Other Therapeutic Interventions Cold laser Next Visit Focus/Plan Next Note Type Treatment Note Next Visit Plan Handout for posterior capsule stretch. Con't manual work, [place] Protocol, arm bike, progressive active range and strengthening over pool noodle , consider wall crawls and further thoracic mobility over pool noodle/roller and with activites like open book stretching at the wall, rib and thoracic mobility
--- NOTE | 2023-03-31 16:41 | PT.OTN ---
Current Diagnoses Other chronic pain (03/31/23) Pain in right shoulder (03/31/23) Physical Therapy Treatment Note PT-OP-A Visit Information Start: 03/13/23 13:19 Freq: Status: Active Protocol: Document 03/31/23 08:20 AB (Rec: 03/31/23 16:41 AB [id number]) Out-Patient Physical Therapy Visit Information Visit Information Visit Note Managed Medicare 06/06 Visit Start Time 14:27 Visit Stop Time 15:22 Visit Number 5 Number of PHYSICS FACULTY MEMBER Visits 1 Evaluation Information Evaluation Date 03/14/23 PT-OP-B Current Condition Start: 03/13/23 13:19 Freq: Status: Active Protocol: Document 03/21/23 10:32 MB (Rec: 03/21/23 11:00 MB [id number]) Current Condition Treatment Goals Patient/Caregiver Goals Pt wonders when PT would get to the point that there would be a diagnostic asked. PT-OP-C Subjective Start: 03/13/23 13:19 Freq: Status: Active Protocol: Document 03/31/23 08:20 AB (Rec: 03/31/23 16:41 AB [id number]) OP-PT Subjective Patient Comments Patient Comments Armaan reports he is a little sore, did Pilates and his exercises already. Patient reports he felt good post previous session. PT-OP-J Posture/Palpation/Skin Start: 03/13/23 13:19 Freq: Status: Active Protocol: Document 03/14/23 11:15 MB (Rec: 03/14/23 11:30 MB [id number]) Posture Evaluation Comments Posture Comments Standing posture: left shoulder is mildly higher than the right; left shoulder is more forward than the right and he has SC and AC changes and stiffness and reports old collar bone injury; forward head, right tragus is 1/2 forward of AC joint; pt with cupping harman on his back; increased convexity lower cervical spine and upp thoracic spine, flat thoracic spine, right scapula is higher than the left, right iliac crest is higher than the left. PT-OP-K Range of Motion Start: 03/13/23 13:19 Freq: Status: Active Protocol: Document 03/14/23 11:15 MB (Rec: 03/14/23 11:43 MB [id number]) Cervical Spine Range of Motion Cervical Spine Active Testing Position Standing Flexion 40 Extension 20 Rotation Left 40 Rotation Right 25 Lateral Flexion Left 10 Lateral Flexion Right 5 Comments Cervical tightness and rotatory component to SB Shoulder Goniometric Range of Motion Shoulder Left Shoulder ROM WFL Yes Testing Position Standing Flexion 150 Abduction 160 Internal Rotation Behind Back (text) To L1 Comments In supine, increased muscle tightness end-range for passive ER in / and IR is normal Right Shoulder ROM WFL No Testing Position Standing Flexion 135 Abduction 130 Internal Rotation Behind Back (text) To T10 Comments In supine, passive ER 5 deg and IR 5 deg with tension end- feel in PT-OP-M Strength Start: 03/13/23 13:19 Freq: Status: Active Protocol: Document 03/14/23 11:15 MB (Rec: 03/14/23 11:43 MB [id number]) Shoulder Strength Shoulder Manual Muscle Testing Left Flexion 5 Normal Abduction (C5) 5 Normal External Rotation 4 Good Right External Rotation 4 Good Comments Deferred flexion and abduction testing Elbow/Forearm Strength Elbow and Forearm Manual Muscle Testing Left Flexion (C6) 5 Normal Extension (C7) 5 Normal Right Flexion (C6) 5 Normal Extension (C7) 5 Normal PT-OP-Q Treatments Start: 03/13/23 13:19 Freq: Status: Active Protocol: Document 03/31/23 08:20 AB (Rec: 03/31/23 16:41 AB [id number]) Therapeutic Exercises Supine Exercises alternating UE flexion Supine Exercise Name hooklying on foam roller Side bilateral Reps/Minutes 10 Comments Verbal cues cheerleaders Supine Exercise Name on foam roller/hooklying Side bilateral Resistance single thickness level one band Reps/Minutes 10 Comments yes mini band modified Supine Exercise Name ER on hooklying on pool noodle with Sh flexion Side bilateral Resistance single thickness level one band Reps/Minutes X10 Comments Verbal cues post cuff stretch Supine Exercise Name post cuff stretch Side right Reps/Minutes X3 30 sec Comments 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 AP ER mobs and PA ER and IR mobs PT-OP-T Assessment and Plan Start: 03/13/23 13:19 Freq: Status: Active Protocol: Document 03/31/23 08:20 AB (Rec: 03/31/23 16:41 AB [id number]) Physical Therapy Assessment Goals 3 Irrigation Equipment Mechanic Goal (LTG) Pt will perform progressive HEP including postural, range, strengthening, and self- myofascial exercises to improve range, function, pain and strength. LTG Duration 8 weeks 2 Impairment Decreased right shoulder ROM and painful range Irrigation Equipment Mechanic Goal (LTG) Pt will present with improved right shoulder flexion and abduction ROM equal to the left in pain-free range to improve functional use of arm and quality of life. LTG Duration 8 weeks 1 Impairment QuickDASH score reflects a little less than 12% impairment Longterm Goal (LTG) Pt will present with QuickDASH score to reflect no more thn 5% impairment to improve function and pain. LTG Duration 8 weeks Assessment Summary Assessment right shoulder flexion increased to 146 from 142 deg start of session, pain with lowering the UE persists. Physical Therapy Plan Frequency and Duration Frequency of Treatment 1-2x/wk Duration of treatment (weeks) 10 Plan of Care Start Date 03/14/23 Plan of Care End Date 05/29/23 Next Visit Focus/Plan Next Note Type Treatment Note Next Visit Plan Con't manual work, [place] Protocol, arm bike, progressive active range and strengthening over pool noodle , consider wall crawls and further thoracic mobility foam roller vs pool noodle and with activites like open book stretching at the wall, rib and thoracic mobility
--- NOTE | 2023-04-05 14:10 | PT.OTN ---
Current Diagnoses Other chronic pain (04/05/23) Pain in right shoulder (04/05/23) Physical Therapy Treatment Note PT-OP-A Visit Information Start: 03/13/23 13:19 Freq: Status: Active Protocol: Document 04/05/23 10:10 AB (Rec: 04/05/23 14:10 AB [id number]) Out-Patient Physical Therapy Visit Information Visit Information Visit Note Managed Medicare 06/06 Visit Start Time 12:59 Visit Stop Time 13:51 Visit Number 6 Number of FURNITURE ASSOCIATE Visits 2 PT-OP-B Current Condition Start: 03/13/23 13:19 Freq: Status: Active Protocol: Document 03/21/23 10:32 MB (Rec: 03/21/23 11:00 MB [id number]) Current Condition Treatment Goals Patient/Caregiver Goals Pt wonders when PT would get to the point that there would be a diagnostic asked. PT-OP-C Subjective Start: 03/13/23 13:19 Freq: Status: Active Protocol: Document 04/05/23 10:10 AB (Rec: 04/05/23 14:10 AB [id number]) OP-PT Subjective Patient Comments Patient Comments Armaan reports having lower back pain, not sure if it was from Pilates or foam roller. Patient reports this happens 2 -3X a year, reports numbness lateral thighs bilaterally. PT-OP-J Posture/Palpation/Skin Start: 03/13/23 13:19 Freq: Status: Active Protocol: Document 03/14/23 11:15 MB (Rec: 03/14/23 11:30 MB [id number]) Posture Evaluation Comments Posture Comments Standing posture: left shoulder is mildly higher than the right; left shoulder is more forward than the right and he has SC and AC changes and stiffness and reports old collar bone injury; forward head, right tragus is 1/2 forward of AC joint; pt with cupping harman on his back; increased convexity lower cervical spine and upp thoracic spine, flat thoracic spine, right scapula is higher than the left, right iliac crest is higher than the left. PT-OP-K Range of Motion Start: 03/13/23 13:19 Freq: Status: Active Protocol: Document 03/14/23 11:15 MB (Rec: 03/14/23 11:43 MB [id number]) Cervical Spine Range of Motion Cervical Spine Active Testing Position Standing Flexion 40 Extension 20 Rotation Left 40 Rotation Right 25 Lateral Flexion Left 10 Lateral Flexion Right 5 Comments Cervical tightness and rotatory component to SB Shoulder Goniometric Range of Motion Shoulder Left Shoulder ROM WFL Yes Testing Position Standing Flexion 150 Abduction 160 Internal Rotation Behind Back (text) To L1 Comments In supine, increased muscle tightness end-range for passive ER in /90 and IR is normal Right Shoulder ROM WFL No Testing Position Standing Flexion 135 Abduction 130 Internal Rotation Behind Back (text) To T10 Comments In supine, passive ER 5 deg and IR 5 deg with tension end- feel in / PT-OP-M Strength Start: 03/13/23 13:19 Freq: Status: Active Protocol: Document 03/14/23 11:15 MB (Rec: 03/14/23 11:43 MB [id number]) Shoulder Strength Shoulder Manual Muscle Testing Left Flexion 5 Normal Abduction (C5) 5 Normal External Rotation 4 Good Right External Rotation 4 Good Comments Deferred flexion and abduction testing Elbow/Forearm Strength Elbow and Forearm Manual Muscle Testing Left Flexion (C6) 5 Normal Extension (C7) 5 Normal Right Flexion (C6) 5 Normal Extension (C7) 5 Normal PT-OP-Q Treatments Start: 03/13/23 13:19 Freq: Status: Active Protocol: Document 04/05/23 10:10 AB (Rec: 04/05/23 14:10 AB [id number]) Therapeutic Exercises Supine Exercises reclined shoulder flexion Supine Exercise Name reclined on 2 pillows Side right Reps/Minutes X10 Comments Patient ed rationale of reclined (AA level) to increase ROM Standing Exercises push up plus on wall Standing Exercise Name wall push up plus Side bilateral Reps/Minutes 10 Comments Visual cues pec stretch Standing Exercise Name standing at door single arm Side bilateral Reps/Minutes one minute X 2 Manual Therapy Treatment Soft Tissue Mobilization post cuff Body Location right post cuff Mobilization Type Rolling,Strumming Intensity/Depth Moderate Comments monitored for pain bilateral pec Body Location right pec Mobilization Type Rolling,Strumming Intensity/Depth Moderate Body Position Hooklying Comments monitored for pain Other Other Manual Treatments [place] Protocol right shoulder: right scapular and GH mobs in many directions with pt in prone and side lying. AP ER mobs and PA ER and IR mobs Self-Care/Home Management Treatment Education Other Education Pt. ed to make MD aware if low back symptoms persist. Patient reports that he has a hx of this and it has been improving since Monday PT-OP-T Assessment and Plan Start: 03/13/23 13:19 Freq: Status: Active Protocol: Document 04/05/23 10:10 AB (Rec: 04/05/23 14:10 AB [id number]) Physical Therapy Assessment Goals 3 Correction Goal (LTG) Pt will perform progressive HEP including postural, range, strengthening, and self- myofascial exercises to improve range, function, pain and strength. LTG Duration 8 weeks 2 Impairment Decreased right shoulder ROM and painful range Oiling Machine Operator Goal (LTG) Pt will present with improved right shoulder flexion and abduction ROM equal to the left in pain-free range to improve functional use of arm and quality of life. LTG Duration 8 weeks 1 Impairment QuickDASH score reflects a little less than 12% impairment Correction Goal (LTG) Pt will present with QuickDASH score to reflect no more thn 5% impairment to improve function and pain. LTG Duration 8 weeks Assessment Summary Assessment AROM right shoulder flexion increased to 140 deg from 138 deg start of session. Patient into session with reports of increased pain, guarded movement with decreased velocity throughout session, VC for safe tech during transfers throughout session. Physical Therapy Plan Frequency and Duration Frequency of Treatment 1-2x/wk Duration of treatment (weeks) 10 Plan of Care Start Date 03/14/23 Plan of Care End Date 05/29/23 Next Visit Focus/Plan Next Note Type Treatment Note Next Visit Plan Con't manual work, [place] Protocol, arm bike, progressive active range and strengthening over pool noodle , consider wall crawls and further thoracic mobility foam roller vs pool noodle and with activites like open book stretching at the wall, rib and thoracic mobility
--- NOTE | 2023-04-07 16:44 | PT.OTN ---
Current Diagnoses Other chronic pain (04/07/23) Pain in right shoulder (04/07/23) Physical Therapy Treatment Note PT-OP-A Visit Information Start: 03/13/23 13:19 Freq: Status: Active Protocol: Document 04/07/23 14:07 AB (Rec: 04/07/23 16:44 AB [id number]) Out-Patient Physical Therapy Visit Information Visit Information Visit Note Managed Medicare 09/05 [id number] HEP access code Visit Start Time 14:30 Visit Stop Time 15:12 Visit Number 7 Number of ICE RESURFACING MACHINE OPERATORS Visits 3 Evaluation Information Evaluation Date 03/14/23 PT-OP-B Current Condition Start: 03/13/23 13:19 Freq: Status: Active Protocol: Document 03/21/23 10:32 MB (Rec: 03/21/23 11:00 MB [id number]) Current Condition Treatment Goals Patient/Caregiver Goals Pt wonders when PT would get to the point that there would be a diagnostic asked. PT-OP-C Subjective Start: 03/13/23 13:19 Freq: Status: Active Protocol: Document 04/07/23 14:07 AB (Rec: 04/07/23 16:44 AB [id number]) OP-PT Subjective Patient Comments Patient Comments Armaan reports the back pain is much better. Armaan reports shoulder is good, was able to do push ups today without any pain. Patient acknowledges he does not have full range in the right shoullder PT-OP-J Posture/Palpation/Skin Start: 03/13/23 13:19 Freq: Status: Active Protocol: Document 03/14/23 11:15 MB (Rec: 03/14/23 11:30 MB [id number]) Posture Evaluation Comments Posture Comments Standing posture: left shoulder is mildly higher than the right; left shoulder is more forward than the right and he has SC and AC changes and stiffness and reports old collar bone injury; forward head, right tragus is 1/2 forward of AC joint; pt with cupping harman on his back; increased convexity lower cervical spine and upp thoracic spine, flat thoracic spine, right scapula is higher than the left, right iliac crest is higher than the left. PT-OP-K Range of Motion Start: 03/13/23 13:19 Freq: Status: Active Protocol: Document 03/14/23 11:15 MB (Rec: 03/14/23 11:43 MB [id number]) Cervical Spine Range of Motion Cervical Spine Active Testing Position Standing Flexion 40 Extension 20 Rotation Left 40 Rotation Right 25 Lateral Flexion Left 10 Lateral Flexion Right 5 Comments Cervical tightness and rotatory component to SB Shoulder Goniometric Range of Motion Shoulder Left Shoulder ROM WFL Yes Testing Position Standing Flexion 150 Abduction 160 Internal Rotation Behind Back (text) To L1 Comments In supine, increased muscle tightness end-range for passive ER in 90/90 and IR is normal Right Shoulder ROM WFL No Testing Position Standing Flexion 135 Abduction 130 Internal Rotation Behind Back (text) To T10 Comments In supine, passive ER 5 deg and IR 5 deg with tension end- feel in 90/90 PT-OP-M Strength Start: 03/13/23 13:19 Freq: Status: Active Protocol: Document 03/14/23 11:15 MB (Rec: 03/14/23 11:43 MB [id number]) Shoulder Strength Shoulder Manual Muscle Testing Left Flexion 5 Normal Abduction (C5) 5 Normal External Rotation 4 Good Right External Rotation 4 Good Comments Deferred flexion and abduction testing Elbow/Forearm Strength Elbow and Forearm Manual Muscle Testing Left Flexion (C6) 5 Normal Extension (C7) 5 Normal Right Flexion (C6) 5 Normal Extension (C7) 5 Normal PT-OP-Q Treatments Start: 03/13/23 13:19 Freq: Status: Active Protocol: Document 04/07/23 14:07 AB (Rec: 04/07/23 16:44 AB [id number]) Therapeutic Exercises Supine Exercises alternating UE flexion on pool noodle Side bilateral Reps/Minutes X10 reclined shoulder flexion Supine Exercise Name reclined on 2 pillows Side right Reps/Minutes X10 Comments Patient ed rationale of reclined (AA level) to increase ROM mini band modified Supine Exercise Name ER on hooklying on pool noodle with Sh flexion Side bilateral Resistance single thickness level one band Reps/Minutes X10 * also trial in standing X 3 not ankita Comments 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 Supine Exercise Name pool noodle Side bilateral Reps/Minutes 3 minutes supine shoulder flexion Supine Exercise Name AROM Side bilateral Reps/Minutes 10 Comments VC for 10 sec hold Sidelying Exercises open book Sidelying Exercise Name Open book Side bilateral Reps/Minutes X5 each side Comments verbal and tactile cues for position, cues for breathing shoulder abduction Sidelying Exercise Name AROM Side right Reps/Minutes 10 Comments reports no discomfort lowering the UE Standing Exercises wall slide flexion Standing Exercise Name Wall slide with lift off Reps/Minutes X3 Comments not ankita, wall slide with stepping to wall, slide then lift off and lower Manual Therapy Treatment Soft Tissue Mobilization thoracic paraspinals Mobilization Type Cross-Friction,Rolling Intensity/Depth Moderate Body Position Sidelying Comments prior to open book post cuff Body Location right post cuff Mobilization Type Rolling,Strumming Intensity/Depth Moderate Comments monitored for pain bilateral pec Body Location right pec Mobilization Type Rolling,Strumming Intensity/Depth Moderate Body Position Hooklying Comments monitored for pain Joint Mobilizations scapular mobilization Joint right scapual Direction into adduction and depression Grade IV Body Position Sidelying Comments Monitored for pain Neuro Re-Education Treatment Other Activities rhytmic oscillation Details shoulder ER and IR yellow therabar Reps/Duration 15 seconds with UE at side 15 sec statue of liberty position right shoulder Comments reports a little discomfort PT-OP-T Assessment and Plan Start: 03/13/23 13:19 Freq: Status: Active Protocol: Document 04/07/23 14:07 AB (Rec: 04/07/23 16:44 AB [id number]) Physical Therapy Assessment Goals 3 Dust Collector Ore Crushing Goal (LTG) Pt will perform progressive HEP including postural, range, strengthening, and self- myofascial exercises to improve range, function, pain and strength. LTG Duration 8 weeks 2 Impairment Decreased right shoulder ROM and painful range Dust Collector Ore Crushing Goal (LTG) Pt will present with improved right shoulder flexion and abduction ROM equal to the left in pain-free range to improve functional use of arm and quality of life. LTG Duration 8 weeks 1 Impairment QuickDASH score reflects a little less than 12% impairment Mcc Goal (LTG) Pt will present with QuickDASH score to reflect no more thn 5% impairment to improve function and pain. LTG Duration 8 weeks Assessment Summary Assessment AROM right shoulder flexion increased to 150 deg end of session from 144 start of session. ROM and strength right shoulder continues to be limited, Feliciano would benefit from continued manual therapy, progression of stretching and strength ex to progress function R sh. Physical Therapy Plan Frequency and Duration Frequency of Treatment 1-2x/wk Duration of treatment (weeks) 10 Plan of Care Start Date 03/14/23 Plan of Care End Date 05/29/23 Next Visit Focus/Plan Next Note Type Treatment Note Next Visit Plan Con't manual work, [place] Protocol, arm bike, progressive active range and strengthening over pool noodle , reassess tolerance to wall crawls and further thoracic mobility foam roller vs pool noodle and with activites like open book stretching at the wall vs sidelying, rib and thoracic mobility
--- NOTE | 2023-04-19 15:16 | PT.OPPOC ---
Physical, Occupational & Speech Therapy At [facility] Current Diagnoses Other chronic pain (04/19/23) Pain in right shoulder (04/19/23) Visit Care Team Role Provider Type Damian Coello DO Attending Provider Physician Family Provider Primary Care Provider Referring Provider Specialty: Family Practice Address: [address] [place] [address], [address], [facility] Email: [email or web address] Plan Of Care PT-OP-T Assessment and Plan Start: 03/13/23 13:19 Freq: Status: Active Protocol: Document 04/19/23 14:30 MB (Rec: 04/19/23 15:15 MB [id number]) Physical Therapy Assessment Goals 3 Intermediate Goal (LTG) Pt will perform progressive HEP including postural, range, strengthening, and self- myofascial exercises to improve range, function, pain and strength. 04/19/23: Pt states that he has not been performing his PT exercises. He con't just to do his regular exercise routine and he does range his right shoulder. LTG Duration 4 weeks 2 Impairment Decreased right shoulder ROM and painful range Brick Siding Applicator Goal (LTG) Pt will present with improved right shoulder flexion and abduction ROM equal to the left in pain-free range to improve functional use of arm and quality of life. 04/19/23: right 135, left 152 for flexion; right 145, left 170 for abduction. IR behind back with right about 2 lower than the left and c/o tightness. PROM in supine: with shoulders in 90/90, passive ER and IR both shoulders are pretty equal After [place] protocol right shoulder flexion 158 and abduction 155 LTG Duration 4 weeks 1 Impairment QuickDASH score reflects a little less than 12% impairment Brick Siding Applicator Goal (LTG) Pt will present with QuickDASH score to reflect no more thn 5% impairment to improve function and pain. 04/19/23: QuickDASH reveals no impairment. Pt reports a 20-25 % improvement in tightness and tension since starting PT LTG Duration Met Assessment Summary Assessment Pt is progressing with range and mobility of shoulder. He has not been compliant with PT HEP and con't his normal exercises. Con't PT per POC. Physical Therapy Plan Frequency and Duration Frequency of Treatment 1-2x/wk Duration of treatment (weeks) 4 Plan of Care Start Date 04/19/23 Plan of Care End Date 05/29/23 Therapeutic Interventions Therapeutic Interventions Balance Training,Canalithic Repositioning,Home Exercise Program,Joint Mobilizations, Manual Therapy,Neuromuscular Re-education,Patient/Caregiver Education,Self-Care/Home Management,Soft Tissue Mobilization,Taping, Therapeutic Activities, Therapeutic Exercises Modalities Cold Pack/Ice Massage,Electric Stimulation,Hot Packs, Ultrasound Other Therapeutic Interventions Cold laser Next Visit Focus/Plan Next Note Type Treatment Note Next Visit Plan Con't manual work and review HEP including thoracic mobility exercises, possibly open book. Review foam roller exercises and add strengthening with band. Plan of Care Dates Plan of Care Start Date 04/19/23 Plan of Care End Date 05/29/23 Electronically Signed by: Tabatha Taylor PT 04/19/23 [id number] If you are in agreement with this Plan of Care, please return a signed and dated copy. I have reviewed this Plan of Care and certify that the skilled therapy services above are required to meet the patient?s needs. Physician Signature Date Printed Name and Credentials Clinical Instructor Signature Printed Name and Credentials
--- NOTE | 2023-04-19 15:16 | PT.OTN ---
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 PT-OP-C Subjective Start: 03/13/23 13:19 Freq: Status: Active Protocol: Document 04/19/23 14:30 MB (Rec: 04/19/23 15:15 MB [id number]) OP-PT Subjective Patient Comments Patient Comments Pt states that he feels like his right arm isn't getting locked up as much. He is mostly doing his normal stuff and regular activities. PT-OP-J Posture/Palpation/Skin Start: 03/13/23 13:19 Freq: Status: Active Protocol: Document 03/14/23 11:15 MB (Rec: 03/14/23 11:30 MB [id number]) Posture Evaluation Comments Posture Comments Standing posture: left shoulder is mildly higher than the right; left shoulder is more forward than the right and he has SC and AC changes and stiffness and reports old collar bone injury; forward head, right tragus is 1/2 forward of AC joint; pt with cupping harman on his back; increased convexity lower cervical spine and upp thoracic spine, flat thoracic spine, right scapula is higher than the left, right iliac crest is higher than the left. PT-OP-K Range of Motion Start: 03/13/23 13:19 Freq: Status: Active Protocol: Document 03/14/23 11:15 MB (Rec: 03/14/23 11:43 MB [id number]) Cervical Spine Range of Motion Cervical Spine Active Testing Position Standing Flexion 40 Extension 20 Rotation Left 40 Rotation Right 25 Lateral Flexion Left 10 Lateral Flexion Right 5 Comments Cervical tightness and rotatory component to SB Shoulder Goniometric Range of Motion Shoulder Left Shoulder ROM WFL Yes Testing Position Standing Flexion 150 Abduction 160 Internal Rotation Behind Back (text) To L1 Comments In supine, increased muscle tightness end-range for passive ER in and IR is normal Right Shoulder ROM WFL No Testing Position Standing Flexion 135 Abduction 130 Internal Rotation Behind Back (text) To T10 Comments In supine, passive ER 5 deg and IR 5 deg with tension end- feel in PT-OP-M Strength Start: 03/13/23 13:19 Freq: Status: Active Protocol: Document 03/14/23 11:15 MB (Rec: 03/14/23 11:43 MB [id number]) Shoulder Strength Shoulder Manual Muscle Testing Left Flexion 5 Normal Abduction (C5) 5 Normal External Rotation 4 Good Right External Rotation 4 Good Comments Deferred flexion and abduction testing Elbow/Forearm Strength Elbow and Forearm Manual Muscle Testing Left Flexion (C6) 5 Normal Extension (C7) 5 Normal Right Flexion (C6) 5 Normal Extension (C7) 5 Normal PT-OP-Q Treatments Start: 03/13/23 13:19 Freq: Status: Active Protocol: Document 04/19/23 14:30 MB (Rec: 04/19/23 15:15 MB [id number]) Therapeutic Exercises Standing Exercises AROM standing Standing Exercise Name Active motion tested in standing Comments See goniometric degrees in goals Manual Therapy Treatment Other Other Manual Treatments [place] Protocol right shoulder: right scapular and GH mobs in many directions with pt in prone, supine and side lying. AP ER mobs and PA ER and IR mobs PT-OP-T Assessment and Plan Start: 03/13/23 13:19 Freq: Status: Active Protocol: Document 04/19/23 14:30 MB (Rec: 04/19/23 15:15 MB [id number]) Physical Therapy Assessment Goals 3 Retirement Goal (LTG) Pt will perform progressive HEP including postural, range, strengthening, and self- myofascial exercises to improve range, function, pain and strength. 04/19/23: Pt states that he has not been performing his PT exercises. He con't just to do his regular exercise routine and he does range his right shoulder. LTG Duration 4 weeks 2 Impairment Decreased right shoulder ROM and painful range Cathead Operator Goal (LTG) Pt will present with improved right shoulder flexion and abduction ROM equal to the left in pain-free range to improve functional use of arm and quality of life. 04/19/23: right 135, left 152 for flexion; right 145, left 170 for abduction. IR behind back with right about 2 lower than the left and c/o tightness. PROM in supine: with shoulders in 90/90, passive ER and IR both shoulders are pretty equal After [place] protocol right shoulder flexion 158 and abduction 155 LTG Duration 4 weeks 1 Impairment QuickDASH score reflects a little less than 12% impairment Cathead Operator Goal (LTG) Pt will present with QuickDASH score to reflect no more thn 5% impairment to improve function and pain. 04/19/23: QuickDASH reveals no impairment. Pt reports a 20-25 % improvement in tightness and tension since starting PT LTG Duration Met Assessment Summary Assessment Pt is progressing with range and mobility of shoulder. He has not been compliant with PT HEP and con't his normal exercises. Con't PT per POC. Physical Therapy Plan Frequency and Duration Frequency of Treatment 1-2x/wk Duration of treatment (weeks) 4 Plan of Care Start Date 04/19/23 Plan of Care End Date 05/29/23 Therapeutic Interventions Therapeutic Interventions Balance Training,Canalithic Repositioning,Home Exercise Program,Joint Mobilizations, Manual Therapy,Neuromuscular Re-education,Patient/Caregiver Education,Self-Care/Home Management,Soft Tissue Mobilization,Taping, Therapeutic Activities, Therapeutic Exercises Modalities Cold Pack/Ice Massage,Electric Stimulation,Hot Packs, Ultrasound Other Therapeutic Interventions Cold laser Next Visit Focus/Plan Next Note Type Treatment Note Next Visit Plan Con't manual work and review HEP including thoracic mobility exercises, possibly open book. Review foam roller exercises and add strengthening with band.
--- NOTE | 2023-04-26 15:17 | PT.OTN ---
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 PT-OP-C Subjective Start: 03/13/23 13:19 Freq: Status: Active Protocol: Document 04/26/23 14:33 MB (Rec: 04/26/23 15:17 MB [id number]) OP-PT Subjective Patient Comments Patient Comments Pt states that everything is going well. PT-OP-J Posture/Palpation/Skin Start: 03/13/23 13:19 Freq: Status: Active Protocol: Document 03/14/23 11:15 MB (Rec: 03/14/23 11:30 MB [id number]) Posture Evaluation Comments Posture Comments Standing posture: left shoulder is mildly higher than the right; left shoulder is more forward than the right and he has SC and AC changes and stiffness and reports old collar bone injury; forward head, right tragus is 1/2 forward of AC joint; pt with cupping harman on his back; increased convexity lower cervical spine and upp thoracic spine, flat thoracic spine, right scapula is higher than the left, right iliac crest is higher than the left. PT-OP-K Range of Motion Start: 03/13/23 13:19 Freq: Status: Active Protocol: Document 03/14/23 11:15 MB (Rec: 03/14/23 11:43 MB [id number]) Cervical Spine Range of Motion Cervical Spine Active Testing Position Standing Flexion 40 Extension 20 Rotation Left 40 Rotation Right 25 Lateral Flexion Left 10 Lateral Flexion Right 5 Comments Cervical tightness and rotatory component to SB Shoulder Goniometric Range of Motion Shoulder Left Shoulder ROM WFL Yes Testing Position Standing Flexion 150 Abduction 160 Internal Rotation Behind Back (text) To L1 Comments In supine, increased muscle tightness end-range for passive ER in 90/ and IR is normal Right Shoulder ROM WFL No Testing Position Standing Flexion 135 Abduction 130 Internal Rotation Behind Back (text) To T10 Comments In supine, passive ER 5 deg and IR 5 deg with tension end- feel in / PT-OP-M Strength Start: 03/13/23 13:19 Freq: Status: Active Protocol: Document 03/14/23 11:15 MB (Rec: 03/14/23 11:43 MB [id number]) Shoulder Strength Shoulder Manual Muscle Testing Left Flexion 5 Normal Abduction (C5) 5 Normal External Rotation 4 Good Right External Rotation 4 Good Comments Deferred flexion and abduction testing Elbow/Forearm Strength Elbow and Forearm Manual Muscle Testing Left Flexion (C6) 5 Normal Extension (C7) 5 Normal Right Flexion (C6) 5 Normal Extension (C7) 5 Normal PT-OP-Q Treatments Start: 03/13/23 13:19 Freq: Status: Active Protocol: Document 04/26/23 14:33 MB (Rec: 04/26/23 15:17 MB [id number]) Therapeutic Exercises Standing Exercises Wall crawls Comments Forward and sideways (flexion and abd) and end-range overpressure mob Manual Therapy Treatment Other Other Manual Treatments [place] Protocol right shoulder: right scapular and GH mobs in many directions with pt in prone, supine and side lying. AP ER mobs and PA ER and IR mobs. PT-OP-T Assessment and Plan Start: 03/13/23 13:19 Freq: Status: Active Protocol: Document 04/26/23 14:33 MB (Rec: 04/26/23 15:17 MB [id number]) Physical Therapy Assessment Goals 3 Senior Living Goal (LTG) Pt will perform progressive HEP including postural, range, strengthening, and self- myofascial exercises to improve range, function, pain and strength. 04/19/23: Pt states that he has not been performing his PT exercises. He con't just to do his regular exercise routine and he does range his right shoulder. LTG Duration 4 weeks 2 Impairment Decreased right shoulder ROM and painful range Real Time Operator Goal (LTG) Pt will present with improved right shoulder flexion and abduction ROM equal to the left in pain-free range to improve functional use of arm and quality of life. 04/19/23: right 135, left 152 for flexion; right 145, left 170 for abduction. IR behind back with right about 2 lower than the left and c/o tightness. PROM in supine: with shoulders in 90/90, passive ER and IR both shoulders are pretty equal After [place] protocol right shoulder flexion 158 and abduction 155 LTG Duration 4 weeks 1 Impairment QuickDASH score reflects a little less than 12% impairment Real Time Operator Goal (LTG) Pt will present with QuickDASH score to reflect no more thn 5% impairment to improve function and pain. 04/19/23: QuickDASH reveals no impairment. Pt reports a 20-25 % improvement in tightness and tension since starting PT LTG Duration Met Assessment Summary Assessment Ed on better positioning with CPAP. Pt tends to resist during [place] protocol today and this makes manual work challenging. Re-ed pt in importance of shoulder range against the wall, wall crawling to improve shoulder movement. Physical Therapy Plan Frequency and Duration Frequency of Treatment 1-2x/wk Duration of treatment (weeks) 4 Plan of Care Start Date 04/19/23 Plan of Care End Date 05/29/23 Therapeutic Interventions Therapeutic Interventions Balance Training,Canalithic Repositioning,Home Exercise Program,Joint Mobilizations, Manual Therapy,Neuromuscular Re-education,Patient/Caregiver Education,Self-Care/Home Management,Soft Tissue Mobilization,Taping, Therapeutic Activities, Therapeutic Exercises Modalities Cold Pack/Ice Massage,Electric Stimulation,Hot Packs, Ultrasound Other Therapeutic Interventions Cold laser Next Visit Focus/Plan Next Note Type Treatment Note Next Visit Plan Con't manual work and review HEP including thoracic mobility exercises, possibly open book. Review foam roller exercises and add strengthening with band.
--- NOTE | 2023-05-09 09:55 | PT.OTN ---
Current Diagnoses Other chronic pain (05/09/23) Pain in right shoulder (05/09/23) Physical Therapy Treatment Note PT-OP-A Visit Information Start: 03/13/23 13:19 Freq: Status: Active Protocol: Document 05/09/23 09:05 MB (Rec: 05/09/23 09:54 MB [id number]) Out-Patient Physical Therapy Visit Information Visit Information Visit Type Treatment Note Visit Start Time 09:05 Visit Stop Time 09:45 Visit Number 10 Number of [employer] SUPERVISOR Visits 0 PT-OP-B Current Condition Start: 03/13/23 13:19 Freq: Status: Active Protocol: Document 03/21/23 10:32 MB (Rec: 03/21/23 11:00 MB [id number]) Current Condition Treatment Goals Patient/Caregiver Goals Pt wonders when PT would get to the point that there would be a diagnostic asked. PT-OP-C Subjective Start: 03/13/23 13:19 Freq: Status: Active Protocol: Document 05/09/23 09:05 MB (Rec: 05/09/23 09:54 MB [id number]) OP-PT Subjective Patient Comments Patient Comments Pt had a wonderful time in [place]. He did a lot of swimming in the pool and did side stroke and back stroke and swimming underwater and his right shoulder range came fully back . Pt thinks he is ready to d/c from PT. PT-OP-J Posture/Palpation/Skin Start: 03/13/23 13:19 Freq: Status: Active Protocol: Document 03/14/23 11:15 MB (Rec: 03/14/23 11:30 MB [id number]) Posture Evaluation Comments Posture Comments Standing posture: left shoulder is mildly higher than the right; left shoulder is more forward than the right and he has SC and AC changes and stiffness and reports old collar bone injury; forward head, right tragus is 1/2 forward of AC joint; pt with cupping harman on his back; increased convexity lower cervical spine and upp thoracic spine, flat thoracic spine, right scapula is higher than the left, right iliac crest is higher than the left. PT-OP-K Range of Motion Start: 03/13/23 13:19 Freq: Status: Active Protocol: Document 03/14/23 11:15 MB (Rec: 03/14/23 11:43 MB [id number]) Cervical Spine Range of Motion Cervical Spine Active Testing Position Standing Flexion 40 Extension 20 Rotation Left 40 Rotation Right 25 Lateral Flexion Left 10 Lateral Flexion Right 5 Comments Cervical tightness and rotatory component to SB Shoulder Goniometric Range of Motion Shoulder Left Shoulder ROM WFL Yes Testing Position Standing Flexion 150 Abduction 160 Internal Rotation Behind Back (text) To L1 Comments In supine, increased muscle tightness end-range for passive ER in 90/90 and IR is normal Right Shoulder ROM WFL No Testing Position Standing Flexion 135 Abduction 130 Internal Rotation Behind Back (text) To T10 Comments In supine, passive ER 5 deg and IR 5 deg with tension end- feel in 90/90 PT-OP-M Strength Start: 03/13/23 13:19 Freq: Status: Active Protocol: Document 03/14/23 11:15 MB (Rec: 03/14/23 11:43 MB [id number]) Shoulder Strength Shoulder Manual Muscle Testing Left Flexion 5 Normal Abduction (C5) 5 Normal External Rotation 4 Good Right External Rotation 4 Good Comments Deferred flexion and abduction testing Elbow/Forearm Strength Elbow and Forearm Manual Muscle Testing Left Flexion (C6) 5 Normal Extension (C7) 5 Normal Right Flexion (C6) 5 Normal Extension (C7) 5 Normal PT-OP-Q Treatments Start: 03/13/23 13:19 Freq: Status: Active Protocol: Document 05/09/23 09:05 MB (Rec: 05/09/23 09:54 MB [id number]) Cardio Equipment Upper Body Ergometer (UBE) Duration (Minutes) 4 Other 1 min forward and 1 min backward x2 Therapeutic Exercises Supine Exercises AROM shoulders and thoracic spine over foam roller Supine Exercise Name Pelvic tilt and abdominal drawing in Reps/Minutes 5-10 reps all AROM and 30 sec pec stretch Comments Flexion B and unilateral, Ts, 1/2Xs and pect stretch Foam roller thoracic mobs Comments Perpendicular over foam roller and mobs Sidelying Exercises open book Comments Arms straight, head in line, end-range pect stretch elbow bent Standing Exercises TrP massage and MWM with racquet ball Comments Intrascapular muscles AROM standing Comments Performed today for ROM assessment on d/c PT-OP-T Assessment and Plan Start: 03/13/23 13:19 Freq: Status: Active Protocol: Document 05/09/23 09:05 MB (Rec: 05/09/23 09:54 MB [id number]) Physical Therapy Assessment Goals 3 Senior Living Goal (LTG) Pt will perform progressive HEP including postural, range, strengthening, and self- myofascial exercises to improve range, function, pain and strength. 04/19/23: Pt states that he has not been performing his PT exercises. He con't just to do his regular exercise routine and he does range his right shoulder. 05/09/23: Pt has been foam roller and band exercises that he got from [employer] LTG Duration 4 weeks 2 Impairment Decreased right shoulder ROM and painful range Senior Living Goal (LTG) Pt will present with improved right shoulder flexion and abduction ROM equal to the left in pain-free range to improve functional use of arm and quality of life. 04/19/23: right 135, left 152 for flexion; right 145, left 170 for abduction. IR behind back with right about 2 lower than the left and c/o tightness. PROM in supine: with shoulders in 90/90, passive ER and IR both shoulders are pretty equal After [place] protocol right shoulder flexion 158 and abduction 155 05/09/23: See ROM findings below, pt has made gains in ROM LTG Duration 4 weeks 1 Impairment QuickDASH score reflects a little less than 12% impairment Senior Living Goal (LTG) Pt will present with QuickDASH score to reflect no more thn 5% impairment to improve function and pain. 04/19/23: QuickDASH reveals no impairment. Pt reports a 20-25 % improvement in tightness and tension since starting PT LTG Duration Met Assessment Summary Assessment AROM in standing: shoulder flexion right 145 deg and left 160 deg; abduction right 158 deg and left 170 deg. Pt con't with some end-range reductions in right shoulder AROM compared to the left and he has no more pulling or catching sensation with eccentric movement. He has a tight thoracic spine and initiated further thoracic exercises for HEP today. Pt has preferred his own exercise programs to PT exercises over therapy course and this limited benefits of shoulder specific exercises to improve range. PT ed pt in benefits of performing PT prescribed exercises and PT for thoracic and shoulder joint mobilizations. Pt has been reporting over a few PT treatments that he is thinking about d/cing and con't with HEP and massage therapy and this is the decision he makes today. PT is always available in the future if he would like to return. PT ed pt in benefits of swimming in local pool to help range as swimming has worked well for him in the past and recently. Pt has kept the range he has gained during PT course. Physical Therapy Plan Frequency and Duration Frequency of Treatment 1-2x/wk Duration of treatment (weeks) 4 Plan of Care Start Date 04/19/23 Plan of Care End Date 05/29/23 Therapeutic Interventions Therapeutic Interventions Balance Training,Canalithic Repositioning,Home Exercise Program,Joint Mobilizations, Manual Therapy,Neuromuscular Re-education,Patient/Caregiver Education,Self-Care/Home Management,Soft Tissue Mobilization,Taping, Therapeutic Activities, Therapeutic Exercises Modalities Cold Pack/Ice Massage,Electric Stimulation,Hot Packs, Ultrasound Other Therapeutic Interventions Cold laser Next Visit Focus/Plan Next Note Type Discharge Summary
== END 2023-05-12 08:08 | disposition home or self-care (01) ==
LOC: PHYS 09:00
PROVIDERS: Family Provider Family Medicine; PCP Family Medicine; Referring Provider Family Medicine; Visit Provider Family Medicine
DX: M25.511 Pain in right shoulder (principal); G89.29 Other chronic pain
CPT/HCPCS: 97110; 97140; 97161; 97530; 97535

== ENCOUNTER → 2024-02-19 16:55 | Outpatient (CLI) | payer MEDICARE, SELFPAY ==
[2024-02-19 18:00] LABS: Hemoglobin A1C% w Est Avg Glu 5.5 % (4.0-6.0)
[2024-02-19 18:16] LABS: Alanine Aminotransferase 25 IU/L (<50); Albumin 4.7 g/dL (3.5-5.0); Albumin Globulin Ratio 1.9 (1.0-2.8); Alkaline Phosphatase 52 U/L (38-126); Aspartate Aminotransferase 32 IU/L (17-59); BUN Creatinine Ratio 17.1 (6-22); Bilirubin Total 1.1 mg/dL (0.2-1.3); Blood Urea Nitrogen 19 mg/dL (9-20); Calcium 9.6 mg/dL (8.4-10.2); Carbon Dioxide 26 mmol/L (22-32); Chloride 99 mmol/L (98-107); Cholesterol 129 mg/dL (140-199); Estimated Glomerular Filt Rate > 60 mL/min (>60); Globulin 2.5 g/dL (1.7-4.1); Glucose 92 mg/dL (80-110); HDL Cholesterol 59 mg/dL (40-60); HEMOLYSIS < 15 (0-50); LDL Cholesterol Calculated 46 mg/dL (<100); Potassium 3.8 mmol/L (3.4-5.1); Sodium 133 mmol/L (137-145); Total Protein 7.2 g/dL (6.3-8.2); Triglycerides 120 mg/dL (35-150)
[2024-02-19 18:47] LABS: Prostate Specific Antigen Scrn 1.49 ng/mL (0.1-4.0)
[2024-02-19 19:01] LABS: Hep C Virus Ab w/Reflex Quant NEGATIVE s/c (NEGATIVE)
== END ==
PROVIDERS: Family Provider Family Medicine; PCP Family Medicine; Referring Provider Family Medicine; Visit Provider Family Medicine
DX: Z00.00 Encounter for general adult medical examination without abnormal findings (principal); I10 Essential (primary) hypertension; I48.19 Other persistent atrial fibrillation; E78.5 Hyperlipidemia, unspecified; Z12.5 Encounter for screening for malignant neoplasm of prostate; R73.01 Impaired fasting glucose
CPT/HCPCS: 36415; 80053; 80061; 83036; 86803; G0103

== ENCOUNTER → 2024-04-04 10:48 | Outpatient (CLI) | payer MEDICARE, SELFPAY ==
[2024-04-04 11:53] LABS: Erythrocyte Sedimentation Rate 11 MM/HR (0-15)
[2024-04-08 15:36] LABS: Albumin 3.7 g/dL (2.9-4.4); Alpha-1-Globulin 0.2 g/dL (0.0-0.4); Alpha-2-Globulin 0.8 g/dL (0.4-1.0); Gamma Globulin 1.1 g/dL (0.4-1.8); Globulin Total 3.2 g/dL (2.2-3.9); Protein, Total 6.9 g/dL (6.0-8.5)
== END ==
PROVIDERS: Family Provider Family Medicine; PCP Family Medicine
DX: R21 Rash and other nonspecific skin eruption (principal)
CPT/HCPCS: 36415; 84155; 84165; 85651

== ENCOUNTER 2024-08-16 05:38 | Emergency (ER) | payer MEDICARE, SELFPAY ==
[2024-08-16] VITALS (9 sets, daily range): BP systolic 170–220; BP diastolic 82–102; PULSE 54–89; RESP 9–22; TEMP 36.1; O2SAT 94–98; BMI 29.8
--- NOTE | 2024-08-16 05:40 | DI.CT.S_ITS ---
PROCEDURE: CT SOFT TISSUE NECK W CON INDICATIONS: Patient stating pressure to throat TECHNIQUE: After the administration of intravenous contrast, 3.0 mm axial sections acquired from the sella to the aortic arch. Additional oblique axial 3.0 mm sections acquired through the pharynx. 3 mm thick coronal and sagittal reformats were generated. For radiation dose reduction, the following was used: automated exposure control. COMPARISON: None. FINDINGS: Image quality: Excellent. Lymph nodes: No enlarged lymph nodes seen throughout the neck. Vessels: Visualized vasculature appears patent. Neck spaces: Symmetric soft tissue thickening of the ligament palatine tonsils and posterior narrows the pharyngeal wall and uvula and vallecular. No organized fluid collection is seen. Partial effacement of the pharynx and oropharynx.. The vocal cords, false vocal cords, pyriform sinuses, epiglottis, vallecula, and tongue base all appear normal. Extramucosal spaces appear unremarkable. Glands: The parotid and submandibular glands appear normal. Thyroid gland demonstrates no significant abnormality. Miscellaneous: Visualized brain and orbits appear normal. Lung apices appear clear. Superficial soft tissues appear normal. Bones: No suspicious bony lesions. Visualized sinuses and mastoids appear unremarkable. IMPRESSION: Symmetric soft tissue thickening of tonsils, posterior nasopharyngeal wall and vallecula, may represent hypertrophy or early inflammation, recommend clinical correlation. No organized fluid collections. Dictated by: Julio C Lane M.D. on 08/16/2024 at 8:20 Approved by: Julio C Lane M.D. on 08/16/2024 at 8:25
--- NOTE | 2024-08-16 05:40 | ED_ITS ---
HPI - General Adult General Chief complaint: Upper Respiratory Symptoms Stated complaint: SOB/throat feels closed up Time Seen by Provider: 08/16/24 05:40 History of Present Illness HPI narrative: Patient is a 74-year-old male with a past medical history of AFib on Eliquis, hypertension hyperlipidemia comes into the ED via EMS for evaluation of throat tightness. He states that he woke up this morning felt like his throat was closing/tight, states that he has improved now but still feels like it is ?going to close however at time of evaluation patient is speaking full sentences protecting airway nono stridor no trismus, patient's voice is slightly hoarse, however posterior oropharynx is clear without any signs of obstruction patient not requiring any supplemental oxygen denies any known exposures to any allergies, patient also states that he did not take his antihypertensive medications this morning. He denies any other symptoms at this time Related Data Previous Rx's ?Medication ?Instructions ?Recorded zolpidem 5 mg tablet (Ambien) 5 mg PO BEDTIME PRN inso mnia #30 02/13/23 tabs albuterol sulfate 90 mcg/actuation 1 - 2 inh inhalatio n Q4-6H PRN 06/19/23 aerosol inhaler shortness of breath or wheez ing #8.5 grams Arnuity Ellipta 100 mcg/actuation 1 inh inhalation LOIS LY #30 ea 07/04/23 powder for inhalation (fluticasone furoate) metoprolol succinate 25 mg 25 mg PO DAILY blood pressu re #90 09/22/23 tablet,extended release 24 hr tabs insulin syr/ndl U100 half teodoro 0.3 #50 ea 10/11/23 mL 29 gauge x 1/2 apixaban 5 mg tablet (Eliquis) 5 mg PO BID #180 tabs 1 04/24/23 hydrochlorothiazide 25 mg tablet 25 mg PO DAILY for bl ood pressure 02/22/24 #90 tabs rosuvastatin 40 mg tablet 40 mg PO DAILY #90 tabs 01/28 08/20 sildenafil 100 mg tablet (Viagra) 50 - 100 mg (0.5 - 1 x 100 mg) PO 03/25/24 DAILY PRN sexual activity #30 tabs Tirzepatide & Vit B12 See Rx Instructions .Route 0 08/13/24 .COMPLEX Weight Loss #10 mL azithromycin 250 mg tablet See Rx Instructions PO .COM PLEX 5 08/13/24 days #6 tabs Allergies Allergy/AdvReac Type Severity Reaction Status Date / Time cat dander AdvReac Intermediate Verified 08/16/24 05:38 house dust mite AdvReac Unknown Verified 08/16/24 05:38 Hay fever Allergy Intermediate Uncoded 08/16/24 05:38 Ragweed Allergy Intermediate Uncoded 08/16/24 05:38 Scotch broom Allergy Intermediate Uncoded 08/16/24 05:38 Arnold grass Allergy Intermediate Uncoded 08/16/24 05:38 Review of Systems Review of Systems Narrative: General: Denies fever, chills, weight loss HEENT: Positive throat tightness/globus sensation, Denies headache, eye drainage, eye irritation, head trauma, sore throat, voice change Cardiovascular: Denies any chest pain, palpitations, tachycardia Respiratory: Positive shortness of breath Denies any, cough, wheeze, stridor GI/: Denies any abdominal pain, nausea, vomiting, diarrhea, bright red blood per rectum, melanotic stools, urinary frequency, urinary retention, dysuria, hematuria MSK: Denies any joint pain, muscle pains, swelling Skin: Denies any rashes, lesions, discoloration Neuro: Denies any headache, lightheadedness, dizziness, fainting, weakness Psych: Denies SI/HI Patient History Medical History (Updated 08/16/24 @ 07:12 by Sergio Blackburn DO) RON (obstructive sleep apnea) Impaired fasting glucose Obesity (BMI 30.0-34.9) Erectile dysfunction Insomnia Encounter for annual wellness visit (AWV) in Medicare patient Plantar warts Asthma (~2019) Allergies Mumps Measles Chicken pox Hyperlipidemia Persistent atrial fibrillation (~2001) Benign essential HTN Surgical History Anesthesia History of nasal surgery Family History Father Congestive heart failure Mother Cancer Congestive heart failure Social History (Updated 02/19/24 @ 15:53 by Unique Saldana MA) marital status: number of children: 4 household members: spouse lives independently: Yes housing: house pets and animals: Yes (2 cats) occupational status: previously employed Previous occupational history: [employer] special herve needs: No travel history: recent leisure activities: exercise, art, music and reading seatbelt use: always helmet use: Yes water heater temp set < 120 deg: Yes working smoke detector in home: Yes fire extinguisher in home: Yes carbon monox detector in home: Yes firearms in home: No do you feel safe at home: Yes Smoking Status: Never smoker alcohol intake: current during the past year weight has: decreased > 10 lbs well-balanced diet: daily or most days daily servings fruits/ve-1 caffeine: Yes eating out: 1-3 times/week Type(s) of exercise: walking, regular exercise, weight lifting and resistance training alcohol intake frequency: 0-2 drinks per day Exam Narrative Exam Narrative: General: Cooperative, well-developed, not in acute distress HEENT: Normocephalic, atraumatic, PERRLA, normal sclera, eyelids normal, patient is speaking full sentences protecting airway patient has a hoarse voice otherwise no voice changes no stridor no trismus posterior oropharynx is clear without a saphenous obstruction, uvula midline Neck: Active full range of motion, atraumatic Chest: Normal to inspection, negative crepitus, no overlying erythema ecchymosis Respiratory: Normal respiratory effort, not in acute respiratory distress, clear to auscultation bilaterally negative cough, wheeze, tachypnea, rhonchi, rales Cardiology: Regular rate rhythm negative gallop, murmur, rubs GI/: No tenderness to palpation, soft, non rigid, normal to inspection, exam deferred MSK: Full active range of motion in all 4 extremities, atraumatic, no tenderness to palpation of any bony prominences Skin: No rashes or lesions noted Neuro: Alert awake oriented x3, moves all 4 extremities spontaneously, cranial nerves intact, able to answer all questions appropriately follows commands appropriately Psych: Cooperative, negative suicidal or homicidal ideations Initial Vital Signs Initial Vital Signs: Vital Signs Temperature 96.9 F L 08/16/24 05:36 Pulse Rate 67 08/16/24 05:36 Respiratory Rate 22 08/16/24 05:36 Blood Pressure 220/102 H 08/16/24 05:36 Pulse Oximetry 98 08/16/24 05:36 Oxygen Delivery Method Room Air 08/16/24 05:36 Course Orders Ordered: ED Orders 08/16/24 05:40 CT soft tissue neck w con Stat CBC Auto Diff [Complete Blood Count AUTO DIFF] Stat CMP [Comprehensive Metabolic Panel] Stat Strep Grp A by PCR Rapid Stat Discontinued Medications Dexamethasone (Dexamethasone 10 Mg/Ml Vial) 10 mg IV NOW ONE Stop: 08/16/24 05:41 Last Admin: 08/16/24 05:47 Dose: 10 mg Documented By: Hydrochlorothiazide (Hydrochlorothiazide 25 Mg Tablet) 25 mg PO NOW ONE Stop: 08/16/24 05:43 Last Admin: 08/16/24 06:06 Dose: 25 mg Documented By: BRIANNE Sodium Chloride (Normal Saline 0.9%) 1,000 mls @ 1,000 mls/hr IV BOLUS ONE Stop: 08/16/24 06:39 Last Admin: 08/16/24 05:48 Dose: 1,000 mls/hr Documented By: Ketorolac Tromethamine (Ketorolac 30 Mg/Ml Vial) 15 mg IV NOW ONE Stop: 08/16/24 05:41 Last Admin: 08/16/24 05:47 Dose: 15 mg Documented By: Metoprolol Succinate (Metoprolol Er 25 Mg Tablet) 25 mg PO NOW ONE Stop: 08/16/24 05:43 Last Admin: 08/16/24 05:52 Dose: 25 mg Documented By: Vital Signs Vital signs: Vital Signs - 8 hr 08/16/24 05:36 08/16/24 05:52 Temperature 96.9 F L Pulse Rate 67 54 L Respiratory Rate 22 Blood Pressure 220/102 H 220/102 H Pulse Oximetry 98 Oxygen Delivery Method Room Air Medical Decision Making Differential Diagnosis Differential Diagnosis: Strep throat, electrolyte abnormality, throat abscess/mass, viral pharyngit Lab Data 08/16/24 05:40 08/16/24 05:40 Labs: Lab Results 08/16/24 Range/Units 05:40 WBC 11.8 H (4.5-11.0) X10^3/uL RBC 5.13 (4.5-5.9) X10^6/uL Hgb 14.6 (13.5-17.5) g/dL Hct 42.4 (41-53) % MCV 82.6 (80-100) fL MCH 28.4 (26-34) PG MCHC 34.4 (30-36) % RDW 13.3 (11.6-14.8) % Plt Count 259 (150-400) X10^3/uL Neut % (Auto) 59.5 (50-75) % Lymph % (Auto) 27.9 (25-40) % [place]on % (Auto) 8.2 (3-14) % Eos % (Auto) 4.2 H (2-4) % Baso % (Auto) 0.2 (0-2) % Neut # (Auto) 7000 (8948-2299) /uL Lymph # (Auto) 3300 (6743-1723) /uL Har[place]on # (Auto) 1000 H (0-900) /uL Eos # (Auto) 500 H (0-450) /uL Baso # (Auto) 0 (0-100) /uL Sodium 126 L (137-145) mmol/L Potassium 3.6 (3.4-5.1) mmol/L Chloride 90 L (98-107) mmol/L Carbon Dioxide 28 (22-32) mmol/L BUN 17 (9-20) mg/dL Creatinine 0.93 (0.66-1.25) mg/dL Estimated GFR > 60 (>60) mL/min BUN/Creatinine Ratio 18.3 (6-22) Glucose 110 H (70-99) mg/dL Calcium 9.1 (8.4-10.2) mg/dL Total Bilirubin 1.0 (0.2-1.3) mg/dL AST 42 (17-59) IU/L ALT 34 (<50) IU/L Alkaline Phosphatase 57 (38-126) U/L Total Protein 7.6 (6.3-8.2) g/dL Albumin 4.6 (3.5-5.0) g/dL Globulin 3.0 (1.7-4.1) g/dL Albumin/Globulin Ratio 1.5 (1.0-2.8) Group A Strep (PCR) Negative (Negative) Imaging Data CT soft tissue neck: Radiologist's Impression: Preliminary read showing symmetric soft tissue new thickening of the tonsils, posterior narrows the pharyngeal wall and vallecula, reflecting hypertrophy or early inflammation, however no abscess MDM Narrative Medical decision making narrative: Patient is a 74-year-old male with a past medical history of AFib on Eliquis, hypertension, hyperlipidemia presenting from home via EMS for evaluation of dyspnea secondary to feeling of throat closure/tightness. States that he has been? sick with sinus congestion for the past week, states that he did see his primary care doctor for this and was prescribed an azithromycin pack as needed. States that he has not taken this yet due to the fact that it has not arrived in the mail. He states that today he woke up and felt like his throat was closing and was having difficulty breathing secondary to this. At time of evaluation patient stating it has almost completely resolved but feels like there is still something ?stuck/pressure in his throat. At time of evaluation patient is speaking full sentences does have some mild hoarseness in his voice but otherwise speaking full sentences no voice changes no stridor no trismus tolerating secretions posterior oropharynx is clear without any signs of obstruction uvula is midline. Patient also noted to be hypertensive upon evaluation but states that he did not take his morning medications therefore did order this for him here. Lab work and imaging was obtained. Patient only with mild elevation to WBC at 11.8, otherwise Chem panel unremarkable, strep throat negative. CT scan showing symmetrical soft tissue thickening of the tonsil and nasopharyngeal wall and vallecula, at time of discharge patient stating symptoms completely resolved after administration medication here, patient more likely with pharyngitis no signs of abscess he has not requiring any supplemental oxygen he was given strict return precautions and agrees to being discharged home with outpatient follow up with PCP. No indication for further intervention Discharge Plan Departure Patient Disposition: Home Clinical Impression: Pharyngitis Activity Restrictions/Additional Instructions: Please follow up with your primary care doctor Please read the discharge instructions sheet carefully and bring all papers to all doctor follow-up visits, as it may contain information that your doctor may want to see. Disease processes change and evolve, if your symptoms worsen or if you develop any new symptoms that are concerning to you please return for evaluation. Your evaluation today does not show any evidence of any life- threatening/serious illnesses requiring admission to the hospital or surgery. Please follow-up with your doctor for re-evaluation in approximately 1 day. Seek immediate medical attention for any worrisome symptoms. *If you do not have a primary care provider please contact the [facility] Resource line at [phone]. They will ask some questions about your medical history and help get you set up with a doctor in the community. Prescriptions: No Action Arnuity Ellipta 100 mcg/actuation blister with device 1 inh inhalation DAILY Qty: 30 11RF metoprolol succinate 25 mg tablet extended release 24 hr 25 mg PO DAILY Qty: 90 3RF sildenafil [Viagra] 100 mg tablet 50 - 100 mg PO DAILY PRN (Reason: sexual activity) Qty: 30 11RF Rx Instructions: take 30 minutes to 4 hours before activity zolpidem [Ambien] 5 mg tablet 5 mg PO BEDTIME PRN (Reason: insomnia) Qty: 30 5RF Eliquis 5 mg tablet 5 mg PO BID Qty: 180 3RF hydrochlorothiazide 25 mg tablet 25 mg PO DAILY Qty: 90 3RF rosuvastatin 40 mg tablet 40 mg PO DAILY Qty: 90 3RF albuterol sulfate 90 mcg/actuation HFA aerosol inhaler 1 - 2 inh inhalation Q4-6H PRN (Reason: shortness of breath or wheezing) Qty: 8.5 11RF (DME) insulin syr/ndl U100 half teodoro 0.3 mL 29 gauge x 1/2 syringe See Rx Instructions .ROUTE .MEDSUPPLY Qty: 50 1RF Rx Instructions: As directed, weekly with semaglutide azithromycin 250 mg tablet See Rx Instructions PO .COMPLEX 5 Days Qty: 6 0RF Rx Instructions: For 250 mg dose pack: take 500 mg today (day 1), then 250 mg for 4 days (days 2-5) PO Tirzepatide & Vit B12 See Rx Instructions .ROUTE .COMPLEX Qty: 10 0RF Rx Instructions: Compound Tirzepatide & Vit B12 per faxed Rx. At risk for B12 def due to dietary restrictions. Rx sent to [facility]. [phone] increased to 10 mg Referrals: Damian Coello DO [Primary Care Provider, Family Practice] Stand Alone Forms: Patient Portal/API
[2024-08-16] MEDS: KETOROLAC 30 MG/ML VIAL 15 MG IV (05:47)
[2024-08-16] MEDS: DEXAMETHASONE 10 MG/ML VIAL IV (05:47)
[2024-08-16] MEDS: SODIUM CHLORIDE 0.9% 1,000 ML 1000 ML IV (05:48)
[2024-08-16] MEDS: METOPROLOL ER 25 MG TABLET PO (05:52)
[2024-08-16 05:53] LABS: Add Manual Diff / Slide Review NO; Basophils Absolute Auto 0 /uL (0-100); Basophils Percent Auto 0.2 % (0-2); Eosinophils Absolute Auto 500 /uL (0-450); Eosinophils Percent Auto 4.2 % (2-4); Hematocrit 42.4 % (41-53); Hemoglobin 14.6 g/dL (13.5-17.5); Lymphocytes Absolute Auto 3300 /uL (1100-4500); Lymphocytes Percent Auto 27.9 % (25-40); Mean Corpuscular HGB Conc 34.4 % (30-36); Mean Corpuscular Hemoglobin 28.4 PG (26-34); Mean Corpuscular Volume 82.6 fL (80-100); Monocytes Absolute Auto 1000 /uL (0-900); Monocytes Percent Auto 8.2 % (3-14); Neutrophils Absolute Auto 7000 /uL (1500-7000); Neutrophils Percent Auto 59.5 % (50-75); Platelet Count 259 X10^3/uL (150-400); Red Blood Cell Count 5.13 X10^6/uL (4.5-5.9); Red Cell Distribution Width 13.3 % (11.6-14.8); White Blood Cell Count 11.8 X10^3/uL (4.5-11.0)
[2024-08-16 06:02] LABS: Alanine Aminotransferase 34 IU/L (<50); Albumin 4.6 g/dL (3.5-5.0); Albumin Globulin Ratio 1.5 (1.0-2.8); Alkaline Phosphatase 57 U/L (38-126); Aspartate Aminotransferase 42 IU/L (17-59); BUN Creatinine Ratio 18.3 (6-22); Blood Urea Nitrogen 17 mg/dL (9-20); Calcium 9.1 mg/dL (8.4-10.2); Carbon Dioxide 28 mmol/L (22-32); Chloride 90 mmol/L (98-107); Estimated Glomerular Filt Rate > 60 mL/min (>60); Glucose 110 mg/dL (70-99); HEMOLYSIS < 15 (0-50); Potassium 3.6 mmol/L (3.4-5.1); Sodium 126 mmol/L (137-145); Total Protein 7.6 g/dL (6.3-8.2)
[2024-08-16 06:06] LABS: Strep Grp A by PCR Rapid Negative (Negative)
[2024-08-16] MEDS: hydroCHLOROthiazide 25 MG TABLET PO (06:06)
== END 2024-08-16 07:25 | disposition home or self-care (01) ==
PROVIDERS: Emergency Provider Student in an Organized Health Care Education/Training Program; Family Provider Family Medicine; PCP Family Medicine
DX: J02.9 Acute pharyngitis, unspecified (principal)
CPT/HCPCS: 70491; 80053; 85025; 87651; 99284; J1100; J1885; Q9967

== ENCOUNTER 2024-08-16 09:46 | Emergency (ER) | payer MEDICARE, SELFPAY ==
[2024-08-16 09:48] VITALS: BP 184/93; PULSE 58; RESP 13; TEMP 36.8; O2SAT 96; BMI 29.9
--- NOTE | 2024-08-16 10:03 | ED_ITS ---
HPI - URI/Sore Throat General Chief Complaint: Shortness of Breath/Dyspnea Stated Complaint: sob, chest pain Time Seen by Provider: 08/16/24 09:53 Source: patient Mode of arrival: Ambulatory History of Present Illness HPI Narrative: 74-year-old gentleman history of AFib on Eliquis hypertension dyslipidemia seen twice already including last night for nonproductive cough shortness of breath throat tightness despite taking allergy medicines and discharged with a Z-Sebastien by his PCP a few days ago but unable to obtain the medicines as it has not arrived at the house. Patient had a CT scan done yesterday evening joints symmetrical soft tissue thickening of the tonsils posterior nasopharyngeal wall and vallecula may represent hypertrophy or early inflammation and also a negative strep. He is fully vaccinated denies any new sick contacts recently. Other than what is stated 14 point review of system is negative Related Data Previous Rx's ?Medication ?Instructions ?Recorded zolpidem 5 mg tablet (Ambien) 5 mg PO BEDTIME PRN inso mnia #30 02/13/23 tabs albuterol sulfate 90 mcg/actuation 1 - 2 inh inhalatio n Q4-6H PRN 06/19/23 aerosol inhaler shortness of breath or wheez ing #8.5 grams Arnuity Ellipta 100 mcg/actuation 1 inh inhalation LOIS LY #30 ea 07/04/23 powder for inhalation (fluticasone furoate) metoprolol succinate 25 mg 25 mg PO DAILY blood pressu re #90 09/22/23 tablet,extended release 24 hr tabs insulin syr/ndl U100 half teodoro 0.3 #50 ea 10/11/23 mL 29 gauge x 1/2 apixaban 5 mg tablet (Eliquis) 5 mg PO BID #180 tabs 1 04/24/23 hydrochlorothiazide 25 mg tablet 25 mg PO DAILY for bl ood pressure 02/22/24 #90 tabs rosuvastatin 40 mg tablet 40 mg PO DAILY #90 tabs 01/28 08/20 sildenafil 100 mg tablet (Viagra) 50 - 100 mg (0.5 - 1 x 100 mg) PO 03/25/24 DAILY PRN sexual activity #30 tabs Tirzepatide & Vit B12 See Rx Instructions .Route 0 08/13/24 .COMPLEX Weight Loss #10 mL azithromycin 250 mg tablet See Rx Instructions PO .COM PLEX 5 08/13/24 days #6 tabs penicillin V potassium 500 mg 500 mg PO BID #20 tabs 0 08/16/24 tablet prednisone 20 mg tablet 20 mg PO BID #10 tabs Allergies Allergy/AdvReac Type Severity Reaction Status Date / Time cat dander AdvReac Intermediate Verified 08/16/24 09:54 house dust mite AdvReac Unknown Verified 08/16/24 09:54 Hay fever Allergy Intermediate Uncoded 08/16/24 09:54 Ragweed Allergy Intermediate Uncoded 08/16/24 09:54 Scotch broom Allergy Intermediate Uncoded 08/16/24 09:54 Arnold grass Allergy Intermediate Uncoded 08/16/24 09:54 Review of Systems Review of Systems ROS Unobtainable: All systems reviewed & are unremarkable except as noted in HPI and below Patient History Medical History (Updated 08/16/24 @ 11:01 by Roque Menezes DO) RON (obstructive sleep apnea) Impaired fasting glucose Obesity (BMI 30.0-34.9) Erectile dysfunction Insomnia Encounter for annual wellness visit (AWV) in Medicare patient Plantar warts Asthma (~2019) Allergies Mumps Measles Chicken pox Hyperlipidemia Persistent atrial fibrillation (~2001) Benign essential HTN Surgical History Anesthesia History of nasal surgery Family History Father Congestive heart failure Mother Cancer Congestive heart failure Social History (Updated 02/19/24 @ 15:53 by Unique Saldana MA) marital status: number of children: 4 household members: spouse lives independently: Yes housing: house pets and animals: Yes (2 cats) occupational status: previously employed Previous occupational history: [employer] special herve needs: No travel history: recent leisure activities: exercise, art, music and reading seatbelt use: always helmet use: Yes water heater temp set < 120 deg: Yes working smoke detector in home: Yes fire extinguisher in home: Yes carbon monox detector in home: Yes firearms in home: No do you feel safe at home: Yes Smoking Status: Unknown if ever smoked alcohol intake: current during the past year weight has: decreased > 10 lbs well-balanced diet: daily or most days daily servings fruits/ve-1 caffeine: Yes eating out: 1-3 times/week Type(s) of exercise: walking, regular exercise, weight lifting and resistance training Smoking Status: Unknown if ever smoked alcohol intake frequency: 0-2 drinks per day Exam Narrative Exam Narrative: GENERAL: [74] year old patient appears stated age. Well-developed patient, in mild distress. HEAD: Atraumatic. Normocephalic. EYES: Pupils equal round and reactive. Extraocular motions intact. No scleral icterus. No injection or drainage. ENT: Nose without bleeding, purulent drainage. Throat without erythema, tonsillar hypertrophy or exudate. Airway patent. NECK: Trachea midline. Non tender CARDIOVASCULAR: Regular rate and rhythm without murmurs, gallops, or rubs. RESPIRATORY: Clear to auscultation. Breath sounds equal bilaterally. No wheezes, rales, or rhonchi. GASTROINTESTINAL: Abdomen soft, non-tender, nondistended. EXTREMITIES: No edema or joint tenderness. BACK: Nontender without deformity or crepitance. No flank tenderness. NEURO: AOx3. SKIN: No rash or erythema of visible areas Initial Vital Signs Initial Vital Signs: Vital Signs Temperature 98.2 F 08/16/24 09:48 Pulse Rate 58 L 08/16/24 09:48 Respiratory Rate 13 08/16/24 09:48 Blood Pressure 184/93 H 08/16/24 09:48 Pulse Oximetry 96 08/16/24 09:48 Oxygen Delivery Method Room Air 08/16/24 09:48 Course Orders Ordered: ED Orders 08/16/24 10:02 Covid-19 + FLU A/B + RSV - PCR Stat Vital Signs Vital signs: Vital Signs - 8 hr 08/16/24 09:48 Temperature 98.2 F Pulse Rate 58 L Respiratory Rate 13 Blood Pressure 184/93 H Pulse Oximetry 96 Oxygen Delivery Method Room Air MDM - URI/Sore Throat MDM Narrative Medical decision making narrative: Vital signs, nurse triage note, medication list, previous ER visits, and all imaging studies reviewed. Patient given penicillin and prednisone here and will be discharged on both medication. Differential diagnosis includes strep, COVID, flu, RSV, bronchitis, pneumonia, bacterial sinusitis, tonsillitis. Discharge Plan Departure Patient Disposition: Home Clinical Impression: Acute bacterial tonsillitis Instructions: DI for Pharyngitis/Tonsillopharyngitis -- Adult Activity Restrictions/Additional Instructions: Return with new or worsening symptoms. Take your medicines as directed. Follow up with PCP in 1-2 weeks if no improvement in symptoms. Prescriptions: New penicillin V potassium 500 mg tablet 500 mg PO BID Qty: 20 0RF prednisone 20 mg tablet 20 mg PO BID Qty: 10 0RF No Action Arnuity Ellipta 100 mcg/actuation blister with device 1 inh inhalation DAILY Qty: 30 11RF metoprolol succinate 25 mg tablet extended release 24 hr 25 mg PO DAILY Qty: 90 3RF sildenafil [Viagra] 100 mg tablet 50 - 100 mg PO DAILY PRN (Reason: sexual activity) Qty: 30 11RF Rx Instructions: take 30 minutes to 4 hours before activity zolpidem [Ambien] 5 mg tablet 5 mg PO BEDTIME PRN (Reason: insomnia) Qty: 30 5RF Eliquis 5 mg tablet 5 mg PO BID Qty: 180 3RF hydrochlorothiazide 25 mg tablet 25 mg PO DAILY Qty: 90 3RF rosuvastatin 40 mg tablet 40 mg PO DAILY Qty: 90 3RF albuterol sulfate 90 mcg/actuation HFA aerosol inhaler 1 - 2 inh inhalation Q4-6H PRN (Reason: shortness of breath or wheezing) Qty: 8.5 11RF (DME) insulin syr/ndl U100 half teodoro 0.3 mL 29 gauge x 1/2 syringe See Rx Instructions .ROUTE .MEDSUPPLY Qty: 50 1RF Rx Instructions: As directed, weekly with semaglutide azithromycin 250 mg tablet See Rx Instructions PO .COMPLEX 5 Days Qty: 6 0RF Rx Instructions: For 250 mg dose pack: take 500 mg today (day 1), then 250 mg for 4 days (days 2-5) PO Tirzepatide & Vit B12 See Rx Instructions .ROUTE .COMPLEX Qty: 10 0RF Rx Instructions: Compound Tirzepatide & Vit B12 per faxed Rx. At risk for B12 def due to dietary restrictions. Rx sent to [facility]. [phone] increased to 10 mg Referrals: Damian Coello DO [Primary Care Provider, Family Practice] Stand Alone Forms: Patient Portal/API
--- NOTE | 2024-08-16 10:34 | PC.NURSE ---
Addendum entered by Alison Leyva R.N. 08/16/24 10:38: patient states his throat still feels a little raw. Original Note: patient states he was lying down resting (hasn't been using his c-pap machine because of his cough the last couple of days) states he woke feeling like his throat closed, i was able to breathe through my nose
[2024-08-16 10:44] LABS: Influenza A - CEPHEID Flu A NEGATIVE (NEGATIVE); Influenza B - CEPHEID Flu B NEGATIVE (NEGATIVE); Respiratory Syncytial Virus Negative (Negative)
[2024-08-16 10:46] LABS: COVID-19 CEPHEID 4-PLEX PCR Negative (Negative)
[2024-08-16] MEDS: PENICILLIN VK 250 MG TABLET 500 MG PO (11:04)
[2024-08-16] MEDS: predniSONE 20 MG TABLET 60 MG PO (11:04)
[2024-08-16 11:12] VITALS: BP 170/87; PULSE 58; RESP 18; TEMP 37; O2SAT 97
== END 2024-08-16 11:18 | disposition home or self-care (01) ==
PROVIDERS: Emergency Provider Family Medicine; Family Provider Family Medicine; PCP Family Medicine
DX: J03.90 Acute tonsillitis, unspecified (principal); J02.9 Acute pharyngitis, unspecified; R06.02 Shortness of breath
CPT/HCPCS: 0241U; 70491; 80053; 85025; 87651; 96361; 96374; 96375; 99283; 99284; J1100; J1885; Q9967

== ENCOUNTER 2024-08-18 05:09 | Emergency (ER) | payer MEDICARE, SELFPAY ==
[2024-08-18 05:17] VITALS: BP 189/86; PULSE 56; RESP 20; O2SAT 97
[2024-08-18 05:18] VITALS: BP 189/86; PULSE 62; RESP 16; TEMP 36.1; O2SAT 96; BMI 29.9
--- NOTE | 2024-08-18 05:23 | ED_ITS ---
HPI - General Adult General Chief complaint: Upper Respiratory Symptoms Stated complaint: Throat Closing, Tightness in throat Time Seen by Provider: 08/18/24 05:17 Source: patient Mode of arrival: Ambulatory History of Present Illness HPI narrative: Patient is a 74-year-old male with a history of AFib on Eliquis, hypertension, hyperlipidemia, returning to the department again for the same complaints, he states that he feels like he is having tightness and swelling in the back of his throat, he states this is only happening whenever he sleeps and states that it wakes him up, he states that when he stands and walks he feels fine. Was seen here previously by myself and had a CT scan on 08/16/2024, he returned a few hours after the same day and was started on amoxicillin for possible bacterial pharyngitis. At time of evaluation patient is speaking in full sentences protecting airway no voice changes no stridor no trismus he states that he has been taking the medication as prescribed but states that he still feels like his throat is closing whenever he sleeps and is now complaining of some mild sore throat. Related Data Previous Rx's ?Medication ?Instructions ?Recorded zolpidem 5 mg tablet (Ambien) 5 mg PO BEDTIME PRN inso mnia #30 02/13/23 tabs albuterol sulfate 90 mcg/actuation 1 - 2 inh inhalatio n Q4-6H PRN 06/19/23 aerosol inhaler shortness of breath or wheez ing #8.5 grams Arnuity Ellipta 100 mcg/actuation 1 inh inhalation LOIS LY #30 ea 07/04/23 powder for inhalation (fluticasone furoate) metoprolol succinate 25 mg 25 mg PO DAILY blood pressu re #90 09/22/23 tablet,extended release 24 hr tabs insulin syr/ndl U100 half teodoro 0.3 #50 ea 10/11/23 mL 29 gauge x 1/2 apixaban 5 mg tablet (Eliquis) 5 mg PO BID #180 tabs 1 04/24/23 hydrochlorothiazide 25 mg tablet 25 mg PO DAILY for bl ood pressure 02/22/24 #90 tabs rosuvastatin 40 mg tablet 40 mg PO DAILY #90 tabs 01/28 08/20 sildenafil 100 mg tablet (Viagra) 50 - 100 mg (0.5 - 1 x 100 mg) PO 03/25/24 DAILY PRN sexual activity #30 tabs Tirzepatide & Vit B12 See Rx Instructions .Route 0 08/13/24 .COMPLEX Weight Loss #10 mL penicillin V potassium 500 mg 500 mg PO BID #20 tabs 0 08/16/24 tablet prednisone 20 mg tablet 20 mg PO BID #10 tabs benzocaine 20 % mucosal aerosol 1 spray mucous membran e TID PRN 08/18/24 spray mouth irritation #57 grams hydroxyzine HCl 25 mg tablet 25 mg PO BID PRN anxiety 1 week 08/18/24 #14 tabs Allergies Allergy/AdvReac Type Severity Reaction Status Date / Time cat dander AdvReac Intermediate Verified 08/16/24 09:54 house dust mite AdvReac Unknown Verified 08/16/24 09:54 Hay fever Allergy Intermediate Uncoded 08/16/24 09:54 Ragweed Allergy Intermediate Uncoded 08/16/24 09:54 Scotch broom Allergy Intermediate Uncoded 08/16/24 09:54 Arnold grass Allergy Intermediate Uncoded 08/16/24 09:54 Review of Systems Review of Systems Narrative: General: Denies fever, chills, weight loss HEENT: Positive sore throat Denies headache, eye drainage, eye irritation, head trauma, voice change Cardiovascular: Denies any chest pain, palpitations, tachycardia Respiratory: Denies any shortness of breath, cough, wheeze, stridor GI/: Denies any abdominal pain, nausea, vomiting, diarrhea, bright red blood per rectum, melanotic stools, urinary frequency, urinary retention, dysuria, hematuria MSK: Denies any joint pain, muscle pains, swelling Skin: Denies any rashes, lesions, discoloration Neuro: Denies any headache, lightheadedness, dizziness, fainting, weakness Psych: Denies SI/HI Patient History Medical History (Updated 08/18/24 @ 05:28 by Sergio Blackburn DO) RON (obstructive sleep apnea) Impaired fasting glucose Obesity (BMI 30.0-34.9) Erectile dysfunction Insomnia Encounter for annual wellness visit (AWV) in Medicare patient Plantar warts Asthma (~2019) Allergies Mumps Measles Chicken pox Hyperlipidemia Persistent atrial fibrillation (~2001) Benign essential HTN Surgical History Anesthesia History of nasal surgery Family History Father Congestive heart failure Mother Cancer Congestive heart failure Social History (Updated 02/19/24 @ 15:53 by Unique Saldana MA) marital status: number of children: 4 household members: spouse lives independently: Yes housing: house pets and animals: Yes (2 cats) occupational status: previously employed Previous occupational history: [employer] special herve needs: No travel history: recent leisure activities: exercise, art, music and reading seatbelt use: always helmet use: Yes water heater temp set < 120 deg: Yes working smoke detector in home: Yes fire extinguisher in home: Yes carbon monox detector in home: Yes firearms in home: No do you feel safe at home: Yes Smoking Status: Never smoker alcohol intake: current during the past year weight has: decreased > 10 lbs well-balanced diet: daily or most days daily servings fruits/ve-1 caffeine: Yes eating out: 1-3 times/week Type(s) of exercise: walking, regular exercise, weight lifting and resistance training Smoking Status: Never smoker alcohol intake frequency: 0-2 drinks per day Exam Narrative Exam Narrative: General: Cooperative, well-developed, not in acute distress HEENT: Normocephalic, atraumatic, PERRLA, normal sclera, eyelids normal, posterior oropharynx clear without any signs of obstruction, uvula is midline patient is speaking full sentences protecting airway no voice changes no stridor no trismus tolerating secretions Neck: Active full range of motion, atraumatic Chest: Normal to inspection, negative crepitus, no overlying erythema ecchymosis Respiratory: Normal respiratory effort, not in acute respiratory distress, clear to auscultation bilaterally negative cough, wheeze, tachypnea, rhonchi, rales Cardiology: Regular rate rhythm negative gallop, murmur, rubs GI/: No tenderness to palpation, soft, non rigid, normal to inspection, exam deferred MSK: Full active range of motion in all 4 extremities, atraumatic, no tenderness to palpation of any bony prominences Skin: No rashes or lesions noted Neuro: Alert awake oriented x3, moves all 4 extremities spontaneously, cranial nerves intact, able to answer all questions appropriately follows commands appropriately Psych: Cooperative, negative suicidal or homicidal ideations Initial Vital Signs Initial Vital Signs: Vital Signs Pulse Rate 56 L 08/18/24 05:17 Respiratory Rate 20 08/18/24 05:17 Blood Pressure 189/86 H 08/18/24 05:17 Pulse Oximetry 97 08/18/24 05:17 Oxygen Delivery Method Room Air 08/18/24 05:17 Course Orders Ordered: ED Orders 08/18/24 05:20 CBC Auto Diff [Complete Blood Count AUTO DIFF] Stat CMP [Comprehensive Metabolic Panel] Stat Discontinued Medications Sodium Chloride (Normal Saline 0.9%) 1,000 mls @ 1,000 mls/hr IV BOLUS ONE Stop: 08/18/24 06:17 Last Admin: 08/18/24 05:34 Dose: 1,000 mls/hr Documented By: KEYON Clindamycin Phosphate (Cleocin) 600 mg in 50 mls @ 50 mls/hr IV NOW ONE Stop: 08/18/24 06:17 Last Admin: 08/18/24 05:34 Dose: 50 mls/hr Documented By: KEYON Ketorolac Tromethamine (Ketorolac 30 Mg/Ml Vial) 30 mg IV NOW ONE Stop: 08/18/24 05:19 Last Admin: 08/18/24 05:33 Dose: 30 mg Documented By: KEYON Vital Signs Vital signs: Vital Signs - 8 hr 08/18/24 05:17 08/18/24 05:17 08/18/24 05:18 Temperature 97.0 F L Pulse Rate 56 L 62 Respiratory Rate 20 16 Blood Pressure 189/86 H 189/86 H Pulse Oximetry 97 96 Oxygen Delivery Method Room Air Room Air 08/18/24 05:30 08/18/24 05:30 08/18/24 06:00 Temperature Pulse Rate 54 L 56 L Respiratory Rate Blood Pressure 174/78 H Pulse Oximetry 96 95 Oxygen Delivery Method 08/18/24 06:00 Temperature Pulse Rate Respiratory Rate Blood Pressure 170/79 H Pulse Oximetry Oxygen Delivery Method Medical Decision Making Differential Diagnosis Differential Diagnosis: Anxiety, allergic reaction, pharyngitis Lab Data 08/18/24 05:20 08/18/24 05:20 Labs: Lab Results 08/18/24 Range/Units 05:20 WBC 20.8 H D (4.5-11.0) X10^3/uL RBC 4.83 (4.5-5.9) X10^6/uL Hgb 13.8 (13.5-17.5) g/dL Hct 39.4 L (41-53) % MCV 81.5 (80-100) fL MCH 28.6 (26-34) PG MCHC 35.1 (30-36) % RDW 12.9 (11.6-14.8) % Plt Count 304 (150-400) X10^3/uL Neut % (Auto) 83.7 H D (50-75) % Lymph % (Auto) 10.0 L (25-40) % [place] % (Auto) 6.1 (3-14) % Eos % (Auto) 0.0 L (2-4) % Baso % (Auto) 0.2 (0-2) % Neut # (Auto) 22690 H (9842-1024) /uL Lymph # (Auto) 2100 (2585-6824) /uL [place] # (Auto) 1300 H (0-900) /uL Eos # (Auto) 0 (0-450) /uL Baso # (Auto) 0 (0-100) /uL Sodium 125 L (137-145) mmol/L Potassium 3.9 (3.4-5.1) mmol/L Chloride 88 L (98-107) mmol/L Carbon Dioxide 27 (22-32) mmol/L BUN 19 (9-20) mg/dL Creatinine 0.86 (0.66-1.25) mg/dL Estimated GFR > 60 (>60) mL/min BUN/Creatinine Ratio 22.1 H (6-22) Glucose 117 H (70-99) mg/dL Calcium 8.8 (8.4-10.2) mg/dL Total Bilirubin 0.9 (0.2-1.3) mg/dL AST 46 (17-59) IU/L ALT 39 (<50) IU/L Alkaline Phosphatase 51 (38-126) U/L Total Protein 7.7 (6.3-8.2) g/dL Albumin 4.8 (3.5-5.0) g/dL Globulin 2.9 (1.7-4.1) g/dL Albumin/Globulin Ratio 1.7 (1.0-2.8) MDM Narrative Medical decision making narrative: Patient is a 74-year-old male with a history of AFib hypertension hyperlipidemia on Eliquis presenting for recurrent feelings of sore throat and throat tightness, he was seen here twice in the past 2 days for the same symptoms, he states that he feels like whenever he is sleeping he has awoken due to the fact that he feels like his throat is closing, however he states that when he sits up and walks he does not feel these symptoms, he was already discharged home with amoxicillin for possible bacterial pharyngitis, patient had a CT scan of his soft tissue neck on 08/16/2024 which showed some mild swelling but no obstruction, on exam patient without any posterior oropharynx swelling, uvula is midline. He does state that his symptoms are improving however states that they are still happening which is the reason why he decided come into the ED again today. Patient had repeat lab work performed here which did show elevation in his WBC 11.8-20.8 on 08/16-08/18, at the this is most likely elevated secondary to the fact that patient has been started on prednisone 20 mg. Patient did receive Toradol and dose of IV antibiotics her with improvement of symptoms. Chem panel unremarkable. I do believe that patient's symptoms are more likely secondary to anxiety, also given the fact that patient with improving symptoms are not worsening do not believe additional/repeat imaging of the CT of the neck is warranted at this time, therefore will also discharge him home with medications to help with his current symptoms, informed him to continue taking the amoxicillin and to start taking the Atarax as well as the benzocaine spray as needed Discharge Plan Departure Patient Disposition: Home Clinical Impression: Pharyngitis Activity Restrictions/Additional Instructions: Please continue taking your antibiotics Please read the discharge instructions sheet carefully and bring all papers to all doctor follow-up visits, as it may contain information that your doctor may want to see. Disease processes change and evolve, if your symptoms worsen or if you develop any new symptoms that are concerning to you please return for evaluation. Your evaluation today does not show any evidence of any life- threatening/serious illnesses requiring admission to the hospital or surgery. Please follow-up with your doctor for re-evaluation in approximately 1 day. Seek immediate medical attention for any worrisome symptoms. *If you do not have a primary care provider please contact the [facility] Resource line at [phone]. They will ask some questions about your medical history and help get you set up with a doctor in the community. Prescriptions: New hydroxyzine HCl 25 mg tablet 25 mg PO BID PRN (Reason: anxiety) 7 Days Qty: 14 0RF benzocaine 20 % aerosol,spray 1 spray mucous membrane TID PRN (Reason: mouth irritation) Qty: 57 0RF No Action Arnuity Ellipta 100 mcg/actuation blister with device 1 inh inhalation DAILY Qty: 30 11RF metoprolol succinate 25 mg tablet extended release 24 hr 25 mg PO DAILY Qty: 90 3RF sildenafil [Viagra] 100 mg tablet 50 - 100 mg PO DAILY PRN (Reason: sexual activity) Qty: 30 11RF Rx Instructions: take 30 minutes to 4 hours before activity zolpidem [Ambien] 5 mg tablet 5 mg PO BEDTIME PRN (Reason: insomnia) Qty: 30 5RF Eliquis 5 mg tablet 5 mg PO BID Qty: 180 3RF hydrochlorothiazide 25 mg tablet 25 mg PO DAILY Qty: 90 3RF rosuvastatin 40 mg tablet 40 mg PO DAILY Qty: 90 3RF albuterol sulfate 90 mcg/actuation HFA aerosol inhaler 1 - 2 inh inhalation Q4-6H PRN (Reason: shortness of breath or wheezing) Qty: 8.5 11RF (DME) insulin syr/ndl U100 half teodoro 0.3 mL 29 gauge x 1/2 syringe See Rx Instructions .ROUTE .MEDSUPPLY Qty: 50 1RF Rx Instructions: As directed, weekly with semaglutide Tirzepatide & Vit B12 See Rx Instructions .ROUTE .COMPLEX Qty: 10 0RF Rx Instructions: Compound Tirzepatide & Vit B12 per faxed Rx. At risk for B12 def due to dietary restrictions. Rx sent to [facility]. [phone] increased to 10 mg penicillin V potassium 500 mg tablet 500 mg PO BID Qty: 20 0RF prednisone 20 mg tablet 20 mg PO BID Qty: 10 0RF Referrals: Damian Coello DO [Primary Care Provider, Family Practice] Stand Alone Forms: Patient Portal/API
[2024-08-18 05:30] VITALS: BP 174/78; PULSE 54; O2SAT 96
[2024-08-18] MEDS: KETOROLAC 30 MG/ML VIAL IV (05:33)
[2024-08-18] MEDS: CLINDAMYCIN 600 MG/50 ML PIGGYBACK 50 MG IV (05:34)
[2024-08-18] MEDS: SODIUM CHLORIDE 0.9% 1,000 ML 1000 ML IV (05:34)
[2024-08-18 05:36] LABS: Add Manual Diff / Slide Review NO; Basophils Absolute Auto 0 /uL (0-100); Basophils Percent Auto 0.2 % (0-2); Eosinophils Absolute Auto 0 /uL (0-450); Hematocrit 39.4 % (41-53); Hemoglobin 13.8 g/dL (13.5-17.5); Lymphocytes Absolute Auto 2100 /uL (1100-4500); Mean Corpuscular HGB Conc 35.1 % (30-36); Mean Corpuscular Hemoglobin 28.6 PG (26-34); Mean Corpuscular Volume 81.5 fL (80-100); Monocytes Absolute Auto 1300 /uL (0-900); Monocytes Percent Auto 6.1 % (3-14); Neutrophils Absolute Auto 17400 /uL (1500-7000); Neutrophils Percent Auto 83.7 % (50-75); Platelet Count 304 X10^3/uL (150-400); Red Blood Cell Count 4.83 X10^6/uL (4.5-5.9); Red Cell Distribution Width 12.9 % (11.6-14.8); White Blood Cell Count 20.8 X10^3/uL (4.5-11.0)
[2024-08-18 05:40] LABS: Alanine Aminotransferase 39 IU/L (<50); Albumin 4.8 g/dL (3.5-5.0); Albumin Globulin Ratio 1.7 (1.0-2.8); Alkaline Phosphatase 51 U/L (38-126); Aspartate Aminotransferase 46 IU/L (17-59); BUN Creatinine Ratio 22.1 (6-22); Bilirubin Total 0.9 mg/dL (0.2-1.3); Blood Urea Nitrogen 19 mg/dL (9-20); Calcium 8.8 mg/dL (8.4-10.2); Carbon Dioxide 27 mmol/L (22-32); Chloride 88 mmol/L (98-107); Estimated Glomerular Filt Rate > 60 mL/min (>60); Globulin 2.9 g/dL (1.7-4.1); Glucose 117 mg/dL (70-99); HEMOLYSIS < 15 (0-50); Potassium 3.9 mmol/L (3.4-5.1); Sodium 125 mmol/L (137-145); Total Protein 7.7 g/dL (6.3-8.2)
[2024-08-18 06:00] VITALS: BP 170/79; PULSE 56; O2SAT 95
[2024-08-18 06:30] VITALS: BP 168/83; PULSE 55; RESP 18; O2SAT 97
== END 2024-08-18 06:39 | disposition home or self-care (01) ==
PROVIDERS: Emergency Provider Student in an Organized Health Care Education/Training Program; Family Provider Family Medicine; PCP Family Medicine
DX: J02.9 Acute pharyngitis, unspecified (principal)
CPT/HCPCS: 36415; 80053; 85025; 96365; 96375; 99284; J1885

== ENCOUNTER → 2024-09-02 10:25 | Outpatient (CLI) | payer MEDICARE, SELFPAY ==
[2024-09-02 11:44] LABS: Blood Urea Nitrogen 18 mg/dL (9-20); Calcium 9.7 mg/dL (8.4-10.2); Carbon Dioxide 29 mmol/L (22-32); Chloride 98 mmol/L (98-107); Estimated Glomerular Filt Rate > 60 mL/min (>60); Glucose 83 mg/dL (70-99); HEMOLYSIS < 15 (0-50); Potassium 3.8 mmol/L (3.4-5.1); Sodium 134 mmol/L (137-145)
== END ==
PROVIDERS: Family Provider Family Medicine; PCP Family Medicine; Referring Provider Family Medicine; Visit Provider Family Medicine
DX: E87.1 Hypo-osmolality and hyponatremia (principal); I48.19 Other persistent atrial fibrillation
CPT/HCPCS: 36415; 80048

== ENCOUNTER → 2024-09-20 08:53 | Outpatient (CLI) | payer MEDICARE, SELFPAY ==
--- NOTE | 2024-09-20 08:54 | DI.ECHO.S_ITS ---
[facility] : : [address] : : [place] : : [id number] : : Phone: [phone] Echocardiogram Report + + :Name: SHEELA CALVO Study Date: 09/20/2024 Height: 72 in : :[facility] ReadingLocation: Weight: 218 lb : : Gender: Male BSA: 2.2 m2 : :: 1950 Age: 74 yrs BP: 179/97 mmHg: :Reason For Study: ATRIAL FIBRILLATION : :Ordering Physician: ROBBIN, : :NEERAJ Performed By: Palomo Rodriguez : :Referring: UNSPECIFIED : + + Interpretation Summary Normal biventricular size and systolic function. LVEF is 55 to 60%. Left atrium is mildly dilated. No significant valvular pathology is noted. Mild pulmonary hypertension. Other findings as below. Procedure: A two-dimensional transthoracic echocardiogram with color flow and Doppler was performed. The study quality was technically good. There is no prior echocardiogram noted for this patient. The patient was in normal sinus rhythm during the exam. Left Ventricle: The left ventricle is normal in size. There is normal left ventricular wall thickness. There is no ventricular septal defect visualized. The ejection fraction is estimated to be 55-60%. There are no focal wall motion abnormalities. Diastolic parameters suggest probable normal left ventricular diastolic function and normal filling pressures. Right Ventricle: The right ventricle is normal in size and function. Atria: The left atrium is mildly dilated. Right atrial size is normal. There is no Doppler evidence for an interatrial shunt. Mitral Valve: The mitral valve leaflets are mildly calcified. There is trace mitral regurgitation. Aortic Valve: The aortic valve is trileaflet. The aortic valve is mildly calcified. The aortic valve opens well. No aortic regurgitation is present. Tricuspid Valve: The tricuspid valve leaflets are thin and pliable. There is trace tricuspid regurgitation. The right ventricular systolic pressure is estimated to be at least 27 mmHg based on an estimated right atrial pressure of 3 mm Hg. Pulmonic Valve: The pulmonic valve is not well seen, but is grossly normal. There is trace pulmonic regurgitation. Great Vessels: The aortic root is normal size. The ascending aorta is normal in size. The pulmonary artery is normal size. The IVC is of normal diameter and collapses greater than 50% with a sniff. This suggests a low right atrial pressure of 3 mm Hg. Pericardium/ Pleura There is no pericardial effusion. There is no pleural effusion. MMode/2D Measurements & Calculations LVIDd: 5.6 cm LVOT diam: 2.4 cm LVIDs: 3.3 cm Ao root diam: 3.6 cm FS: 41.2 % asc Aorta Diam: 4.4 cm EPSS: 0.45 cm IVSd: 0.96 cm LVPWd: 1.0 cm LV man. diameter/BSA (cm/m^2): 2.5 LV sys. diameter/BSA (cm/m^2): 1.5 LA A2 area: 23.9 cm2 RA long axis: 4.8 cm LA A4 area: 21.9 cm2 RA area: 14.1 cm2 LA length (vol): 5.6 cm RA vol: 34.8 ml LA vol: 78.6 ml RA : 15.8 ml/m2 LA vol index: 35.6 ml/m2 IVC diam: 1.6 cm RVD1 (basal): 4.2 cm RVD2 (mid): 3.2 cm TAPSE: 3.4 cm Doppler Measurements & Calculations Ao V2 max: 134.6 cm/sec LVOT Max Khang: 115.5 cm/sec Ao V2 mean: 95.3 cm/sec LV V1 max P.3 mmHg Ao max P.2 mmHg LV V1 VTI: 23.6 cm Ao mean P.9 mmHg JUSTO(I,D): 4.1 cm2 Ao V2 VTI: 25.4 cm JUSTO(V,D): 3.8 cm2 sev ratio: 0.93 JUSTO indexed to BSA (cm^2/m^2): 1.8 MV E max khang: 63.5 cm/sec TR max khang: 242.7 cm/sec MV A max khang: 59.1 cm/sec TR max P.6 mmHg MV E/A: 1.1 PA V2 max: 96.3 cm/sec Med Peak E' Khang: 6.7 cm/sec PA V2 mean: 56.1 cm/sec E/E' med: 9.5 PA mean P.5 mmHg Lat Peak E' Khang: 9.1 cm/sec PA pr(Accel): 53.3 mmHg E/E' lat: 7.0 E/e' average: 8.2 MV dec time: 0.24 sec SV(LVOT): 103.5 ml Reading Physician:10:07 AM
== END ==
PROVIDERS: Family Provider Family Medicine; PCP Family Medicine; Referring Provider Internal Medicine Cardiovascular Disease; Visit Provider Internal Medicine Cardiovascular Disease
DX: I48.91 Unspecified atrial fibrillation (principal); I10 Essential (primary) hypertension
CPT/HCPCS: 93306

== ENCOUNTER 2024-10-03 11:21 | Emergency (ER) | payer MEDICARE, SELFPAY ==
[2024-10-03] VITALS (19 sets, daily range): BP systolic 110–167; BP diastolic 50–91; PULSE 78–118; RESP 12–21; TEMP 36.8; O2SAT 95–100; BMI 28.5
--- NOTE | 2024-10-03 11:24 | ED.SYNCOPE ---
HPI - Syncope General Chief Complaint: Trauma Stated Complaint: Passed out, low energy Time Seen by Provider: 10/03/24 11:22 History of Present Illness HPI narrative: 74-year-old gentleman history of AFib on Eliquis dyslipidemia hypertension sleep apnea was at the kitchen sink putting the coffee cup down when he started feeling lightheaded and dizzy and then passing out and ended up on the kitchen floor. He denies headache, dizziness, blurred vision, chest pain, shortness of breath, nausea, vomiting, diaphoresis, neck pain, gait instability, bowel or bladder incontinence, at this time. Other than what is stated 14 point review of system is negative. Related Data Home Medications ?Medication ?Instructions ?Recorded ?Confirmed hydroxyzine HCl 25 mg tablet 25 mg PO BID PRN 09/02/24 09/24/24 Previous Rx's ?Medication ?Instructions ?Recorded zolpidem 5 mg tablet (Ambien) 5 mg PO BEDTIME PRN insomnia #30 02/13/23 tabs albuterol sulfate 90 mcg/actuation 1 - 2 inh inhalation Q4-6H PRN 06/19/23 aerosol inhaler shortness of breath or wheezing #8.5 grams Arnuity Ellipta 100 mcg/actuation 1 inh inhalation DAILY #30 ea 07/04/23 powder for inhalation (fluticasone furoate) insulin syr/ndl U100 half teodoro 0.3 #50 ea 10/11/23 mL 29 gauge x 1/2 apixaban 5 mg tablet (Eliquis) 5 mg PO BID #180 tabs 02/22/24 hydrochlorothiazide 25 mg tablet 25 mg PO DAILY for blood pressure 02/22/24 #90 tabs rosuvastatin 40 mg tablet 40 mg PO DAILY #90 tabs 02/22/24 sildenafil 100 mg tablet (Viagra) 50 - 100 mg (0.5 - 1 x 100 mg) PO 03/25/24 DAILY PRN sexual activity #30 tabs Tirzepatide & Vit B12 See Rx Instructions .Route 08/13/24 .COMPLEX Weight Loss #10 mL benzocaine 20 % mucosal aerosol 1 spray mucous membrane TID PRN 08/18/24 spray mouth irritation #57 grams metoprolol succinate 50 mg 50 mg PO DAILY blood pressure #90 09/12/24 tablet,extended release 24 hr tabs Allergies Allergy/AdvReac Type Severity Reaction Status Date / Time cat dander AdvReac Intermediate Verified 10/03/24 11:30 house dust mite AdvReac Unknown Verified 10/03/24 11:30 Hay fever Allergy Intermediate Uncoded 10/03/24 11:30 Ragweed Allergy Intermediate Uncoded 10/03/24 11:30 Scotch broom Allergy Intermediate Uncoded 10/03/24 11:30 Arnold grass Allergy Intermediate Uncoded 10/03/24 11:30 Review of Systems Review of Systems ROS Unobtainable: All systems reviewed & are unremarkable except as noted in HPI and below Patient History Medical History (Updated 10/03/24 @ 15:28 by Roque Menezes DO) RON (obstructive sleep apnea) Impaired fasting glucose Obesity (BMI 30.0-34.9) Erectile dysfunction Insomnia Encounter for annual wellness visit (AWV) in Medicare patient Plantar warts Asthma (~2019) Allergies Mumps Measles Chicken pox Hyperlipidemia Persistent atrial fibrillation (~2001) Benign essential HTN Surgical History Anesthesia History of nasal surgery Family History Father Congestive heart failure Mother Cancer Congestive heart failure Social History (Updated 02/19/24 @ 15:53 by Unique Saldana MA) marital status: number of children: 4 household members: spouse lives independently: Yes housing: house pets and animals: Yes (2 cats) occupational status: previously employed Previous occupational history: [employer]rent[employer] special herve needs: No travel history: recent leisure activities: exercise, art, music and reading seatbelt use: always helmet use: Yes water heater temp set < 120 deg: Yes working smoke detector in home: Yes fire extinguisher in home: Yes carbon monox detector in home: Yes firearms in home: No do you feel safe at home: Yes Smoking Status: Unknown if ever smoked alcohol intake: current during the past year weight has: decreased > 10 lbs well-balanced diet: daily or most days daily servings fruits/ve-1 caffeine: Yes eating out: 1-3 times/week Type(s) of exercise: walking, regular exercise, weight lifting and resistance training alcohol intake frequency: 0-2 drinks per day Exam Narrative Exam Narrative: GENERAL: [74] year old patient appears stated age. Well-developed patient, in mild distress. HEAD: Atraumatic. Normocephalic. EYES: Pupils equal round and reactive. Extraocular motions intact. No scleral icterus. No injection or drainage. ENT: Nose without bleeding, purulent drainage. Throat without erythema, tonsillar hypertrophy or exudate. Airway patent. NECK: Trachea midline. Non tender CARDIOVASCULAR: Regular rate and rhythm without murmurs, gallops, or rubs. RESPIRATORY: Clear to auscultation. Breath sounds equal bilaterally. No wheezes, rales, or rhonchi. GASTROINTESTINAL: Abdomen soft, non-tender, nondistended. EXTREMITIES: No edema or joint tenderness. BACK: Nontender without deformity or crepitance. No flank tenderness. NEURO: AOx3. GCS 15 nonfocal neuro exam 5/5 upper and lower extremity for her to nose opposite lxsm-fr-vpea negative pronator drift SKIN: No rash or erythema of visible areas Initial Vital Signs Initial Vital Signs: Vital Signs Temperature 98.2 F 10/03/24 11:22 Pulse Rate 81 10/03/24 11:22 Respiratory Rate 21 10/03/24 11:22 Blood Pressure 148/82 H 10/03/24 11:22 Pulse Oximetry 98 10/03/24 11:22 Oxygen Delivery Method Room Air 10/03/24 11:22 Course Orders Ordered: Discontinued Medications Potassium Chloride (Potassium Chloride 20 Meq/15 Ml Udc) 40 meq PO NOW ONE Stop: 10/03/24 13:50 Last Admin: 10/03/24 13:57 Dose: Not Given Documented By: KATE Potassium Chloride (Potassium Chloride 20 Meq Tab) 40 meq PO NOW ONE Stop: 10/03/24 13:54 Last Admin: 10/03/24 14:02 Dose: 40 meq Documented By: KATE Vital Signs Vital signs: Vital Signs - 8 hr 10/03/24 11:22 Temperature 98.2 F Pulse Rate 81 Respiratory Rate 21 Blood Pressure 148/82 H Pulse Oximetry 98 Oxygen Delivery Method Room Air MDM - Syncope Lab Data 10/03/24 11:28 10/03/24 11:28 Labs: Lab Results 10/03/24 10/03/24 Range/Units 11:28 14:12 WBC 12.8 H (4.5-11.0) X10^3/uL RBC 5.20 (4.5-5.9) X10^6/uL Hgb 15.0 (13.5-17.5) g/dL Hct 42.5 (41-53) % MCV 81.7 (80-100) fL MCH 28.8 (26-34) PG MCHC 35.3 (30-36) % RDW 13.6 (11.6-14.8) % Plt Count 324 (150-400) X10^3/uL Neut % (Auto) 66.5 (50-75) % Lymph % (Auto) 21.0 L (25-40) % [place] % (Auto) 9.8 (3-14) % Eos % (Auto) 2.2 (2-4) % Baso % (Auto) 0.5 (0-2) % Neut # (Auto) 8500 H (6254-0363) /uL Lymph # (Auto) 2700 (7304-6565) /uL [place] # (Auto) 1300 H (0-900) /uL Eos # (Auto) 300 (0-450) /uL Baso # (Auto) 100 (0-100) /uL PT 18.2 H (9.4-12.5) SECONDS INR 1.6 H (0.9-1.3) APTT 35 (25.1-36.5) SECONDS Sodium 132 L (137-145) mmol/L Potassium 3.3 L (3.4-5.1) mmol/L Chloride 96 L (98-107) mmol/L Carbon Dioxide 24 (22-32) mmol/L BUN 20 (9-20) mg/dL Creatinine 1.14 (0.66-1.25) mg/dL Estimated GFR > 60 (>60) mL/min BUN/Creatinine Ratio 17.5 (6-22) Glucose 92 (70-99) mg/dL Calcium 9.3 (8.4-10.2) mg/dL Magnesium 2.0 (1.6-2.3) mg/dL Total Bilirubin 1.4 H (0.2-1.3) mg/dL AST 36 (17-59) IU/L ALT 28 (<50) IU/L Alkaline Phosphatase 46 (38-126) U/L Total Creatine Kinase 215 H (55-170) U/L Troponin I < 0.012 < 0.012 (0.01-0.034) ng/mL NT-Pro-B Natriuret Pep 2570 H (<125) pg/mL Total Protein 7.6 (6.3-8.2) g/dL Albumin 4.6 (3.5-5.0) g/dL Globulin 3.0 (1.7-4.1) g/dL Albumin/Globulin Ratio 1.5 (1.0-2.8) Lipase 126 (23-300) U/L Imaging Data Chest x-ray: Radiologist's Impression: [place] [address] XRay Report Signed Patient: Feliciano Soto MR#: [id number] : 1950 Acct:[id number] Age/Sex: 74 / M Date of Service: 10/03/24 Loc: ED Accession Number: [id number] Procedure: XR chest 1V Ordering Provider: Roque Menezes D.O. PROCEDURE: XR CHEST 1V INDICATIONS: Chest Pain TECHNIQUE: One view of the chest was acquired. COMPARISON: None. FINDINGS: Surgical changes and devices: None. Lungs and pleura: Lungs are clear. No pleural effusions or pneumothorax. Mediastinum: Mediastinal contours appear normal. Heart size is enlarged. Bones and chest wall: No suspicious bony lesions. Overlying soft tissues appear unremarkable. IMPRESSION: No acute cardiopulmonary abnormality is seen. CT scan - head: Radiologist's Impression: [place] [address] CT Scan Report Signed Patient: Feliciano Soto MR#: [id number] : 1950 Acct:[id number] Age/Sex: 74 / M Date of Service: 10/03/24 Loc: ED Accession Number: [id number] Procedure: CT head/brain wo con Ordering Provider: Roque Menezes D.O. PROCEDURE: CT HEAD/BRAIN WO CON INDICATIONS: syncope,on eliquis TECHNIQUE: Noncontrast 4.5 mm thick angled axial sections acquired from the foramen magnum to the vertex, with coronal and sagittal reformats. For radiation dose reduction, the following was used: automated exposure control, adjustment of mA and/or kV according to patient size. COMPARISON: [facility], CT, CT HEAD/BRAIN WO CON, 12/21/2022, 3:50. FINDINGS: Image quality: Diagnostic. CSF spaces: Basal cisterns are patent. No extra-axial fluid collections. The ventricles are symmetric in size and shape. Brain: No intracranial bleeds or mass effect. There is cerebral volume loss, with resultant ventricular and sulcal prominence. There are periventricular and deep white matter chronic small vessel ischemic changes. There is intracranial internal carotid artery atherosclerosis. Skull and face: Calvarium and visualized facial bones appear intact, without suspicious lesions. Sinuses: Jtfv-fi-gtuxtilp mucosal thickening can be seen within the right maxillary sinus. Visualized sinuses and mastoids are otherwise relatively clear. IMPRESSION: No acute intracranial hemorrhage is seen. No acute intracranial pathology. CT scan - chest: Radiologist's Impression: [address] [address] [address] Scan Report Signed Patient: Feliciano Soto MR#: [id number] : 1950 Acct:[id number] Age/Sex: 74 / M Date of Service: 10/03/24 Loc: ED Accession Number: [id number] Procedure: CT angio head and neck Ordering Provider: Roque Menezes D.O. PROCEDURE: CT ANGIO HEAD AND NECK INDICATIONS: syncope TECHNIQUE: After the administration of intravenous contrast, 1 mm thick sections acquired from the aortic arch through the [place]. 3-dimensional eeixbeh-lzoexgccv-bvzqdijufn (MIP) and/or volume rendering reformats were acquired of the central intracranial vasculature and neck separately. For radiation dose reduction, the following was used: automated exposure control, adjustment of mA and/or kV according to patient size. COMPARISON: None. FINDINGS: Image quality: Diagnostic. Cerebral CT Angiogram: Aneurysmal dilatation of the ascending aorta in the chest measures up to 4.2 centimeters diameter. Aortic arch measures 3.2 cm and proximal descending thoracic aorta measures 2.9 cm. Mild nonspecific peribronchial thickening in the upper lobes some of which may be related expiratory result although bronchitis, viral infection, asthma or other process not excluded. Degenerative changes of the cervical spine without CT evidence of fracture or subluxation. Mild levoscoliosis cervical spine. Internal carotid arteries: No acute findings. Intracranial ICA are patent with no significant stenosis. No occlusion. No aneurysm. Anterior cerebral arteries: Unremarkable. No significant stenosis. No occlusion. No aneurysm. Middle cerebral arteries: Unremarkable. No significant stenosis. No occlusion. No aneurysm. Posterior cerebral arteries: Unremarkable. No significant stenosis. No occlusion. No aneurysm. Basilar artery: Unremarkable. No significant stenosis. No occlusion. No aneurysm. Vertebral arteries: Unremarkable as visualized. Dural venous sinuses: Unremarkable given phase of enhancement. Other: Arterial phase appearance of the brain parenchyma is unremarkable. Neck CT Angiogram: Internal carotid arteries: Unremarkable. No significant stenosis. No dissection or occlusion. Common carotid arteries: Unremarkable. No significant stenosis. No dissection or occlusion. External carotid arteries: Unremarkable. No occlusion. Vertebral arteries: Unremarkable. No significant stenosis. No dissection or occlusion. Aortic Arch and Mediastinum: Partially visualized aortic arch unremarkable without evidence of aneurysm. Origins of the great vessels unremarkable. Other: Arterial phase soft tissues of the neck and chest are unremarkable. IMPRESSION: No significant intracranial arterial abnormality is seen. No significant abnormality is seen within the arteries of the neck. Ascending aortic aneurysm 4.2 cm. Any quantitative measurements of stenosis were performed using NASCET criteria. Dictated by: Gilbert Mohamud M.D. on 10/03/2024 at 14:32 Approved by: Gilbert Mohamud M.D. on 10/03/2024 at 14:39 ECG Data Interpretation: Afib HR 87 PA undetermined QRS [address]-t wave change Unchanged from 12/21/22 [facility] Narrative Medical decision making narrative: All lab work, vital signs, nurse triage note, medication list, previous ER visits, and all imaging studies reviewed. Orthostatic vital signs reviewed. White count of 12.8 INR 1.6 sodium 132 potassium 3.3 T bili 1.4 CK 215 troponin less than 0.012 x2 sets. BNP 2570. CTA showed no significant intracranial arterial abnormality but ascending aortic aneurysm 4.[address] head showed no acute intracranial hemorrhage. CT for cervical spine showed no displaced fracture or traumatic subluxation. Potassium given here for replacement. Differential diagnosis CVA TIA orthostatic hypotension aneurysm hemorrhage STEMI NSTEMI unstable angina. Discharge Plan Departure Patient Disposition: Home Clinical Impression: Acute hypokalemia Syncope Qualifiers: Syncope type: unspecified Qualified Code(s): R55 - Syncope and collapse AA (aortic aneurysm) Qualifiers: Aortic location: thoracic aorta Thoracic aorta location: ascending aorta Presence of rupture: without rupture Qualified Code(s): I71.21 - Aneurysm of the ascending aorta, without rupture Instructions: DI for Syncope in Adults (Fainting) Activity Restrictions/Additional Instructions: Return with new or worsening symptoms. Follow up with PCP and Cardiology tomorrow or early next week. Keep hydrated. Prescriptions: No Action Arnuity Ellipta 100 mcg/actuation blister with device 1 inh inhalation DAILY Qty: 30 11RF sildenafil [Viagra] 100 mg tablet 50 - 100 mg PO DAILY PRN (Reason: sexual activity) Qty: 30 11RF Rx Instructions: take 30 minutes to 4 hours before activity metoprolol succinate 50 mg tablet extended release 24 hr 50 mg PO DAILY Qty: 90 3RF zolpidem [Ambien] 5 mg tablet 5 mg PO BEDTIME PRN (Reason: insomnia) Qty: 30 5RF Eliquis 5 mg tablet 5 mg PO BID Qty: 180 3RF hydrochlorothiazide 25 mg tablet 25 mg PO DAILY Qty: 90 3RF rosuvastatin 40 mg tablet 40 mg PO DAILY Qty: 90 3RF albuterol sulfate 90 mcg/actuation HFA aerosol inhaler 1 - 2 inh inhalation Q4-6H PRN (Reason: shortness of breath or wheezing) Qty: 8.5 11RF (DME) insulin syr/ndl U100 half teodoro 0.3 mL 29 gauge x 1/2 syringe See Rx Instructions .ROUTE .MEDSUPPLY Qty: 50 1RF Rx Instructions: As directed, weekly with semaglutide Tirzepatide & Vit B12 See Rx Instructions .ROUTE .COMPLEX Qty: 10 0RF Rx Instructions: Compound Tirzepatide & Vit B12 per faxed Rx. At risk for B12 def due to dietary restrictions. Rx sent to [facility]. [phone] increased to 10 mg hydroxyzine HCl 25 mg tablet 25 mg PO BID PRN benzocaine 20 % aerosol,spray 1 spray mucous membrane TID PRN (Reason: mouth irritation) Qty: 57 0RF Referrals: Damian Coello DO [Primary Care Provider, Family Practice] Stand Alone Forms: Patient Portal/API
--- NOTE | 2024-10-03 11:28 | DI.RAD.S_ITS ---
PROCEDURE: XR CHEST 1V INDICATIONS: Chest Pain TECHNIQUE: One view of the chest was acquired. COMPARISON: None. FINDINGS: Surgical changes and devices: None. Lungs and pleura: Lungs are clear. No pleural effusions or pneumothorax. Mediastinum: Mediastinal contours appear normal. Heart size is enlarged. Bones and chest wall: No suspicious bony lesions. Overlying soft tissues appear unremarkable. IMPRESSION: No acute cardiopulmonary abnormality is seen. Dictated by: Baron Padilla M.D. on 10/03/2024 at 12:07 Approved by: Baron Padilla M.D. on 10/03/2024 at 12:08
--- NOTE | 2024-10-03 11:28 | EKG_ITS ---
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
--- NOTE | 2024-10-03 11:29 | DI.CT.S_ITS ---
PROCEDURE: CT CERVICAL SPINE WO CON INDICATIONS: syncope,on eliquis TECHNIQUE: Noncontrast 3 mm thick sections acquired from the skull base to the T4 level. Sagittal and coronal reformats were then constructed. For radiation dose reduction, the following was used: automated exposure control, adjustment of mA and/or kV according to patient size. COMPARISON: [facility], CT, CT CERVICAL SPINE WO CON, 12/21/2022, 3:50. FINDINGS: Image quality: Excellent. Bones: No fractures or dislocations. Visualized superior ribs are intact. Soft tissues: Prevertebral soft tissues are normal in thickness. No paravertebral hematomas. No apical pneumothoraces. IMPRESSION: No displaced fracture or traumatic subluxation. Dictated by: Baron Padilla M.D. on 10/03/2024 at 12:08 Approved by: Baron Padilla M.D. on 10/03/2024 at 12:09
--- NOTE | 2024-10-03 11:29 | DI.CT.S_ITS ---
PROCEDURE: CT HEAD/BRAIN WO CON INDICATIONS: syncope,on eliquis TECHNIQUE: Noncontrast 4.5 mm thick angled axial sections acquired from the foramen magnum to the vertex, with coronal and sagittal reformats. For radiation dose reduction, the following was used: automated exposure control, adjustment of mA and/or kV according to patient size. COMPARISON: [facility], CT, CT HEAD/BRAIN WO CON, 12/21/2022, 3:50. FINDINGS: Image quality: Diagnostic. CSF spaces: Basal cisterns are patent. No extra-axial fluid collections. The ventricles are symmetric in size and shape. Brain: No intracranial bleeds or mass effect. There is cerebral volume loss, with resultant ventricular and sulcal prominence. There are periventricular and deep white matter chronic small vessel ischemic changes. There is intracranial internal carotid artery atherosclerosis. Skull and face: Calvarium and visualized facial bones appear intact, without suspicious lesions. Sinuses: Hzon-ph-hwjeyrym mucosal thickening can be seen within the right maxillary sinus. Visualized sinuses and mastoids are otherwise relatively clear. IMPRESSION: No acute intracranial hemorrhage is seen. No acute intracranial pathology. To the limits of this noncontrast study, no findings of intracranial masses or mass effect can be seen. Dictated by: Bart Tillman M.D. on 10/03/2024 at 10:44 Approved by: Bart Tillman M.D. on 10/03/2024 at 10:45
[2024-10-03 11:45] LABS: Add Manual Diff / Slide Review NO; Hematocrit 42.5 % (41-53); Hemoglobin 15.0 g/dL (13.5-17.5); Lymphocytes Absolute Auto 2700 /uL (1100-4500); Mean Corpuscular HGB Conc 35.3 % (30-36); Mean Corpuscular Hemoglobin 28.8 PG (26-34); Mean Corpuscular Volume 81.7 fL (80-100); Platelet Count 324 X10^3/uL (150-400)
[2024-10-03 11:54] LABS: INR 1.6 (0.9-1.3); Prothrombin Time 18.2 SECONDS (9.4-12.5)
[2024-10-03 11:57] LABS: PTT Partial Thromboplastin Tim 35 SECONDS (25.1-36.5)
[2024-10-03 11:58] LABS: Alanine Aminotransferase 28 IU/L (<50); Albumin 4.6 g/dL (3.5-5.0); Albumin Globulin Ratio 1.5 (1.0-2.8); Alkaline Phosphatase 46 U/L (38-126); Blood Urea Nitrogen 20 mg/dL (9-20); Calcium 9.3 mg/dL (8.4-10.2); Carbon Dioxide 24 mmol/L (22-32); Chloride 96 mmol/L (98-107); Creatine Kinase 215 U/L (55-170); Estimated Glomerular Filt Rate > 60 mL/min (>60); Globulin 3.0 g/dL (1.7-4.1); Glucose 92 mg/dL (70-99); Lipase 126 U/L (23-300); Magnesium 2.0 mg/dL (1.6-2.3); Potassium 3.3 mmol/L (3.4-5.1); Sodium 132 mmol/L (137-145); Total Protein 7.6 g/dL (6.3-8.2)
[2024-10-03 12:01] LABS: HEMOLYSIS 52 (0-50)
[2024-10-03 12:10] LABS: NT-proBNP (BNP-Adult 18+) 2570 pg/mL (<125); Troponin I < 0.012 ng/mL (0.01-0.034)
--- NOTE | 2024-10-03 13:48 | DI.CT.S_ITS ---
PROCEDURE: CT ANGIO HEAD AND NECK INDICATIONS: syncope TECHNIQUE: After the administration of intravenous contrast, 1 mm thick sections acquired from the aortic arch through the [place]. 3-dimensional iehuigj-fzrllwsac-nmrqmbyueu (MIP) and/or volume rendering reformats were acquired of the central intracranial vasculature and neck separately. For radiation dose reduction, the following was used: automated exposure control, adjustment of mA and/or kV according to patient size. COMPARISON: None. FINDINGS: Image quality: Diagnostic. Cerebral CT Angiogram: Aneurysmal dilatation of the ascending aorta in the chest measures up to 4.2 centimeters diameter. Aortic arch measures 3.2 cm and proximal descending thoracic aorta measures 2.9 cm. Mild nonspecific peribronchial thickening in the upper lobes some of which may be related expiratory result although bronchitis, viral infection, asthma or other process not excluded. Degenerative changes of the cervical spine without CT evidence of fracture or subluxation. Mild levoscoliosis cervical spine. Internal carotid arteries: No acute findings. Intracranial ICA are patent with no significant stenosis. No occlusion. No aneurysm. Anterior cerebral arteries: Unremarkable. No significant stenosis. No occlusion. No aneurysm. Middle cerebral arteries: Unremarkable. No significant stenosis. No occlusion. No aneurysm. Posterior cerebral arteries: Unremarkable. No significant stenosis. No occlusion. No aneurysm. Basilar artery: Unremarkable. No significant stenosis. No occlusion. No aneurysm. Vertebral arteries: Unremarkable as visualized. Dural venous sinuses: Unremarkable given phase of enhancement. Other: Arterial phase appearance of the brain parenchyma is unremarkable. Neck CT Angiogram: Internal carotid arteries: Unremarkable. No significant stenosis. No dissection or occlusion. Common carotid arteries: Unremarkable. No significant stenosis. No dissection or occlusion. External carotid arteries: Unremarkable. No occlusion. Vertebral arteries: Unremarkable. No significant stenosis. No dissection or occlusion. Aortic Arch and Mediastinum: Partially visualized aortic arch unremarkable without evidence of aneurysm. Origins of the great vessels unremarkable. Other: Arterial phase soft tissues of the neck and chest are unremarkable. IMPRESSION: No significant intracranial arterial abnormality is seen. No significant abnormality is seen within the arteries of the neck. Ascending aortic aneurysm 4.2 cm. Any quantitative measurements of stenosis were performed using NASCET criteria. Dictated by: Gilbert Mohamud M.D. on 10/03/2024 at 14:32 Approved by: Gilbert Mohamud M.D. on 10/03/2024 at 14:39
[2024-10-03] MEDS: POTASSIUM CHLORIDE 20 MEQ TAB 40 MEQ PO (14:02)
[2024-10-03 14:50] LABS: Troponin I < 0.012 ng/mL (0.01-0.034)
== END 2024-10-03 15:47 | disposition home or self-care (01) ==
PROVIDERS: Emergency Provider Family Medicine; Family Provider Family Medicine; PCP Family Medicine
DX: R55 Syncope and collapse (principal); I71.40 Abdominal aortic aneurysm, without rupture, unspecified; I48.91 Unspecified atrial fibrillation; E87.6 Hypokalemia; Z79.01 Long term (current) use of anticoagulants
CPT/HCPCS: 36415; 70450; 70496; 70498; 71045; 72125; 80053; 82550; 83690; 83735; 83880; 84484; 85025; 85610; 85730; 93005; 99284; Q9967

== ENCOUNTER → 2025-02-21 16:21 | Outpatient (CLI) | payer MEDICARE, SELFPAY ==
[2025-02-21 17:04] LABS: Hematocrit 39.2 % (41-53); Hemoglobin 13.4 g/dL (13.5-17.5); Mean Corpuscular HGB Conc 34.2 % (30-36); Mean Corpuscular Hemoglobin 28.4 PG (26-34); Mean Corpuscular Volume 83.2 fL (80-100); Platelet Count 247 X10^3/uL (150-400)
[2025-02-21 17:25] LABS: Alanine Aminotransferase 39 IU/L (<50); Albumin 4.3 g/dL (3.5-5.0); Albumin Globulin Ratio 1.7 (1.0-2.8); Alkaline Phosphatase 50 U/L (38-126); Blood Urea Nitrogen 21 mg/dL (9-20); Calcium 9.2 mg/dL (8.4-10.2); Carbon Dioxide 28 mmol/L (22-32); Chloride 99 mmol/L (98-107); Cholesterol 135 mg/dL (140-199); Estimated Glomerular Filt Rate > 60 mL/min (>60); Globulin 2.6 g/dL (1.7-4.1); Glucose 95 mg/dL (70-99); HDL Cholesterol 58 mg/dL (40-60); HEMOLYSIS < 15 (0-50); Potassium 4.0 mmol/L (3.4-5.1); Sodium 136 mmol/L (137-145); Total Protein 6.9 g/dL (6.3-8.2); Triglycerides 160 mg/dL (35-150)
== END ==
LOC: LAB 16:22
PROVIDERS: PCP Family Medicine; Referring Provider Family Medicine; Visit Provider Family Medicine
DX: Z00.00 Encounter for general adult medical examination without abnormal findings (principal); Z12.5 Encounter for screening for malignant neoplasm of prostate; E66.9 Obesity, unspecified; I48.19 Other persistent atrial fibrillation; E87.1 Hypo-osmolality and hyponatremia; E87.6 Hypokalemia
CPT/HCPCS: 36415; 80053; 80061; 85027; G0103